=== PATIENT | female | born 1940 | race Caucasian/White ===

== ENCOUNTER 2019-02-05 22:11 | Observation (INO) ==
[2019-02-05] MEDS ORDERED: NORMAL SALINE 1,000 ML IV ONE (22:37)
--- NOTE | 2019-02-05 22:40 | ERNOTE ---
Abdominal HPI - General Time Seen by Provider: 02/05/19 22:22 Source: patient, family Exam Limitations: no limitations - Immun/Allergies/Home Medications Immunizatons: IMMUNIZATION HX Immunizations Up to Date Yes History of Influenza Vaccine Yes Hx Pneumococcal Vaccination Yes Allergies/Adverse Reactions: Allergies oxycodone [Oxycodone] Adverse Reaction (Intermediate, Verified 02/03/19 10:55) hallucinations hydrocodone Adverse Reaction (Mild, Verified 02/03/19 10:55) Headache lisinopril Adverse Reaction (Mild, Verified 02/03/19 10:55) cough Sulfa (Sulfonamide Antibiotics) Adverse Reaction (Mild, Verified 02/03/19 10:55) rash Home Medications: HOME MEDICATIONS Blood Sugar Diagnostic, Drum [Accu-Chek Compact] 1 ea MC BID 10/09/14 [Last Taken Unknown] Insul NPH Hu Rec/Ins Rg Hu Rec [Novolin 70/30] 30 units SC BID 10/09/14 [Last Taken Unknown] Nitroglycerin [Nitrostat] 0.4 mg SL Q5MIN PRN 10/09/14 [Last Taken Unknown] cholecalciferol (vitamin D3) 10,000 unit capsule 20,000 unit PO Q7D cap 12/20/17 [Last Taken Unknown] insulin syringe U-100 with needle 1 mL 30 gauge x 1/2" See Dose Instructions .ROUTE .MEDSUPPLY #10 ea 12/20/17 [Last Taken Unknown] lancets See Dose Instructions .ROUTE .MEDSUPPLY #50 ea 12/20/17 [Last Taken Unkn own] lancets See Dose Instructions .ROUTE .MEDSUPPLY #100 ea 01/07/18 [Last Taken Unknown] pen needle, diabetic 31 gauge x 5/16" See Dose Instructions .ROUTE .MEDSUPPLY #30 ea 01/07/18 [Last Taken Unknown] enalapril maleate 2.5 mg tablet 5 mg PO DAILY #60 tab 04/18/18 [Last Taken Unknown] blood sugar diagnostic strips See Dose Instructions .ROUTE .MEDSUPPLY #100 ea 06/14/18 [Last Taken Unknown] metformin 850 mg tablet 850 mg PO TID #240 tab 06/27/18 [Last Taken Unknown] hydrochlorothiazide 25 mg tablet 50 mg PO DAILY #60 tab 07/19/18 [Last Taken Unknown] cholestyramine-aspartame 4 gram oral powder for susp in a packet 4 g PO DAILY #60 ea 08/19/18 [Last Taken Unknown] aspirin 81 mg tablet,delayed release 81 mg PO DAILY 08/20/18 [Last Taken Unknown] glucosamine sulfate 500 mg tablet 500 mg PO BID 08/20/18 [Last Taken Unknown] vitamin B complex tablet 1 tab PO DAILY 08/20/18 [Last Taken Unknown] diflunisal 500 mg tablet 500 mg PO BID #60 tab 09/19/18 [Last Taken Unknown] gabapentin 600 mg tablet See Rx Instructions PO DAILY #90 tab 10/01/18 [Last Taken Unknown] metoprolol succinate ER 50 mg tablet,extended release 24 hr See Rx Instructions .ROUTE .COMPLEX #30 tablet 10/01/18 [Last Taken Unknown] venlafaxine 75 mg tablet 75 mg PO TID #90 tab 10/01/18 [Last Taken Unknown] clopidogrel 75 mg tablet See Rx Instructions .ROUTE .COMPLEX #30 tablet 11/27/18 [Last Taken Unknown] insulin glargine (U-100) 100 unit/mL (3 mL) subcutaneous pen 50 unit SUBCUT DAILY #15 ml 12/25/18 [Last Taken Unknown] isosorbide mononitrate ER 30 mg tablet,extended release 24 hr 30 mg PO QAM #30 tab 12/25/18 [Last Taken Unknown] dicyclomine 20 mg tablet 20 mg PO TID PRN #30 tab 02/03/19 [Last Taken Unknown] metronidazole 500 mg tablet 500 mg PO TID 10 Days #30 tab 02/05/19 [Last Taken Unknown] - History of Present Illness Narrative: Patient had diarrhea for approximately a week she is currently on Flagyl and Bentyl her diarrhea continues. She is also had issues with her left foot she had her left great toenail removed about a month ago and in the interim her other toes have seems to be discolored. Last couple of days her small toe is been erythematous and sore. Timing: getting worse Quality: moderate Associated Symptoms: Present: nausea Review of Systems - Review of Systems Constitutional: Present: recent illness, fatigue. Absent: chills ENT: Absent: nose congestion, nasal drainage Respiratory: Absent: shortness of breath, cough Cardiology: Absent: chest pain, palpitations Gastrointestinal/Abdominal: Present: See HPI, nausea, diarrhea, abdominal pain Genitourinary: Absent: dysuria Musculoskeletal: Present: back pain - fall yesterday Skin: Present: rash - feet, dryness Endocrine: Absent: excessive sweating Hematologic/Lymphatic: Present: easy bruising Medical History (Updated 02/06/19 @ 03:59 by Chuck Stokes DO) Arthritis Onset Date: Unknown Back pain Onset Date: Unknown Bilateral knee pain Onset Date: Unknown CAD (coronary artery disease) Onset Date: Unknown CHF (congestive heart failure) Onset Date: Unknown Shaji Bonnet syndrome Onset Date: Unknown DJD (degenerative joint disease) Onset Date: Unknown Depression Onset Date: Unknown Diabetes Onset Date: Unknown Diabetes mellitus, type II Onset Date: Unknown Frequent falls Onset Date: Unknown GERD (gastroesophageal reflux disease) Onset Date: Unknown Glaucoma Onset Date: Unknown HTN (hypertension) Onset Date: Unknown Hyperlipidemia Onset Date: Unknown Legally blind Lichen sclerosus Myalgia and myositis RLS (restless legs syndrome) Vertebral fracture Surgical History: Surgical History (Updated 12/21/17 @ 06:47 by Abhijit Pérez MA) H/O: hysterectomy Onset Date: ~1975 History of ankle surgery Onset Date: Unknown History of arthroscopy of right knee Onset Date: ~[address] Angel arthrosocopy History of eye surgery Onset Date: ~2013 OD to replace bleb per pt Hx of CABG Onset Date: ~2005 Hx of cholecystectomy Onset Date: ~1995 Family History: Family History (Updated 12/21/17 @ 06:43 by Abhijit Pérez MA) Father Diabetes Mother CVA (cerebral vascular accident) Sister 2 sisters with breast cancer Social History: (Last Reviewed 02/05/19 @ 22:32 by Chuck Stokes DO) Social History: Marital status: household members: spouse current occupational status: retired Highest education level completed: some college, no degree Service: No Tobacco: Smoking Status: Never smoker Alcohol: alcohol intake: never Substance Use: substance use type: does not use Dietary Habits: caffeine: No Physical Exam - Physical Exam General Appearance: Present: wd/wn, alert, mild distress, lethargic Head Exam: Present: normal inspection, no evidence of injury Eye Exam: Normal inspection: bilateral Respiratory: Present: no respiratory distress, normal breath sounds, no accessory muscle use, lungs clear Cardiovascular/Chest: Present: regular rate, rhythm, no murmur Gastrointestinal/Abdominal: Present: normal bowel sounds, tenderness - RUQ, LUQ, LLQ Extremity Exam: Present: other - Pedal edema bilaterally. Redness and swelling of toes on the left Neurological Exam: Present: alert, oriented, normal mood/affect, no motor/sensory deficits Skin Exam: Present: other - Skin is generally dry somewhat flaky. Left great toenail bed is dry third toe has black/ possible blood blister on the tip. Small toe is erythematous swollen tender. Progress - Results and Orders Patient's Lab Results:: I have reviewed the patient's lab results. Results and Orders: Laboratory Tests 02/05/19 02/05/19 22:45 22:45 WBC 11.2 H Hgb 11.6 L Hct 34.1 L Plt Count 249 Neutrophils % (Manual) 82 H Sodium 132 Potassium 3.5 Chloride 95 L BUN 34 H Creatinine 1.44 H Random Glucose 213 H Calcium 8.3 Total Bilirubin 0.3 AST 17 ALT 7 L Alkaline Phosphatase 67 Albumin 2.5 L Amylase 15 L Lipase 53 L - Vital Signs Patient's Vital Signs:: I have reviewed the patient's vital signs. Vital Signs: Vital Signs 02/05/19 22:16 Temperature 38.1 C H Pulse Rate 79 Respiratory Rate 18 Blood Pressure 127/82 O2 Sat by Pulse Oximetry 91 L - X-Ray X-Ray #1 X-Ray: abdomen Interpretation: Interp. by me X-ray Comments: No free air or significant air-fluid levels. No evidence of obstruction or mass. X-Ray #2 X-Ray: foot Interpretation: Interp. by me X-ray Comments: Left foot No evidence of fracture, dislocation or periosteal reaction. - CT/Ultrasound CT/Ultrasound Narrative: CT abdomen pelvis with IV and oral contrast. Focally hypodistended rectosigmoid colon with characteristics worrisome for severe colitis superimposed upon generalized colitis. No evidence for perforation or obstruction. Appendix nonvisualized however lack of pericecal inflammation makes appendicitis extremely unlikely - Progress/Reassessment Progress Note-Subjective: 02/06/19 04:[address] Martines he agrees with admission for colitis. Departure Clinical Impression: Colitis Cellulitis Qualifiers: Site of cellulitis: extremity Site of cellulitis of extremity: toe Laterality: left Qualified Code(s): L03.032 - Cellulitis of left toe - Departure Disposition: Still a patient Condition: Fair
[2019-02-05 22:51] LABS: Hematocrit 34.1 % (37.0-47.0); Hemoglobin 11.6 gm/dL (12.5-16.0); Mean Cell Volume 96.9 fl (78-100); Mean Platelet Volume 9.5 fl (8-12.5); Platelet Count 249 K/mm3 (150-450); Red Blood Count 3.52 M/mm3 (4.2-5.4); Red Cell Distribution Width 12.7 % (11.5-14.0); White Blood Count 11.2 K/mm3 (4.0-10.5)
[2019-02-05 22:57] LABS: Total Cells Counted 100
[2019-02-05 23:00] LABS: Eosinophil 1 % (0-3); Lymphocyte 10 % (20-51); Monocyte 7 % (0-9); Neutrophil 82 % (42-75); Neutrophil # 9.2 K/mm3 (1.3-6.0); Platelet Estimate Normal (NORMAL); RBC Morphology Normal (NORMAL)
[2019-02-05 23:05] LABS: Albumin * 2.5 gm/dl (3.4-5.0); Anion Gap 16.1 mmol/L (6.8-13.8); BUN/Creatinine Ratio 23.6 (9.0-21.6); Bilirubin, Total 0.3 mg/dL (0.0-1.1); Ca. Corrected For Albumin 9.2 mg/dL (8.4-10.2); Calcium * 8.3 mg/dL (7.9-10.9); Carbon Dioxide 24.4 mmol/L (24-32.6); Potassium 3.5 mmol/L (3.4-4.6); Total Protein 6.3 gm/dL (6.2-8.2)
[2019-02-06 00:04] LABS: Urine Bilirubin Negative (NEGATIVE); Urine Blood 50 /ul (NEGATIVE); Urine Ketone Negative (NEGATIVE); Urine Nitrite Negative (NEGATIVE); Urine Protein 30 mg/dL (NEGATIVE); Urine Urobilinogen Normal (NORMAL); Urine pH 5.5 pH (5.0-7.0)
[2019-02-06 00:11] LABS: Urine Appearance Clear (CLEAR); Urine Bacteria 1+; Urine Color Yellow; Urine RBC TRACE /hpf (0-5); Urine WBC TRACE /hpf (0-5)
[2019-02-06] MEDS ORDERED: DIATRIZOATE MEGLUMINE, SODIUM 30 ML BTL PO ONE (00:13)
[2019-02-06] MEDS ORDERED: ONDANSETRON HCL/PF 2 MG/ML VIAL IV ONE (01:34)
[2019-02-06] MEDS ORDERED: CIPROFLOXACIN IN 5 % DEXTROSE 400 MG/200 ML BAG IV SCH (04:15)
[2019-02-06] MEDS: metroNIDAZOLE/SODIUM CHLORIDE 500 MG/100 ML BAG IV SCH ×3 (05:53→20:31)
[2019-02-06] MEDS ORDERED: NITROGLYCERIN 0.4 MG/TAB BTL SL PRN (07:32)
--- NOTE | 2019-02-06 07:59 | HP ---
Chief Complaint - Chief Complaint Date of Service: 02/06/19 Time of Service: 07:36 Chief Complaint: diarrhea and abdominal pain Medical History (Updated 02/06/19 @ 03:59 by Chuck Stokes DO) Arthritis Onset Date: Unknown Back pain Onset Date: Unknown Bilateral knee pain Onset Date: Unknown CAD (coronary artery disease) Onset Date: Unknown CHF (congestive heart failure) Onset Date: Unknown Shaji Bonnet syndrome Onset Date: Unknown DJD (degenerative joint disease) Onset Date: Unknown Depression Onset Date: Unknown Diabetes Onset Date: Unknown Diabetes mellitus, type II Onset Date: Unknown Frequent falls Onset Date: Unknown GERD (gastroesophageal reflux disease) Onset Date: Unknown Glaucoma Onset Date: Unknown HTN (hypertension) Onset Date: Unknown Hyperlipidemia Onset Date: Unknown Legally blind Lichen sclerosus Myalgia and myositis RLS (restless legs syndrome) Vertebral fracture Surgical History: Surgical History (Updated 12/21/17 @ 06:47 by Abhijit Pérez MA) H/O: hysterectomy Onset Date: ~1975 History of ankle surgery Onset Date: Unknown History of arthroscopy of right knee Onset Date: ~[address] Angel arthrosocopy History of eye surgery Onset Date: ~2013 OD to replace bleb per pt Hx of CABG Onset Date: ~2005 Hx of cholecystectomy Onset Date: ~1995 Family History: Family History (Updated 12/21/17 @ 06:43 by Abhijit Pérez MA) Father Diabetes Mother CVA (cerebral vascular accident) Sister 2 sisters with breast cancer Social History: (Last Reviewed 02/06/19 @ 05:18 by Elicia Leos RN) Social History: Marital status: household members: spouse current occupational status: retired Highest education level completed: some college, no degree Service: No Tobacco: Smoking Status: Never smoker Alcohol: alcohol intake: never Substance Use: substance use type: does not use Dietary Habits: caffeine: No Review Of Systems (GEN) - Review of Systems Generalized/Overall Review: Absent: Chills, Fever EENTM: Present: No Symptoms Reported Respiratory: Present: No Symptoms Reported Cardiac: Present: No Symptoms Reported Abdominal: Present: Nausea, Vomiting, Abdominal Pain, Diarrhea. Absent: Hematemesis Genitourinary: Present: No Symptoms Reported Musculoskeletal: Present: No Symptoms Reported Neurological: Present: No Symptoms Reported Skin: Present: Change in Color, Change in hair/nails Endocrine: Present: No Symptoms Reported Immunizations: IMMUNIZATION HX Immunizations Up to Date Yes History of Influenza Vaccine Yes Hx Pneumococcal Vaccination Yes Allergies/Adverse Reactions: Allergies Allergy/AdvReac Type Severity Reaction Status Date / Time oxycodone [Oxycodone] AdvReac Intermediate hallucinati Verified 02/03/19 10:55 ons hydrocodone AdvReac Mild Headache Verified 02/03/19 10:55 lisinopril AdvReac Mild cough Verified 02/03/19 10:55 Sulfa (Sulfonamide AdvReac Mild rash Verified 02/03/19 10:55 Antibiotics) Home Medications: HOME MEDICATIONS Blood Sugar Diagnostic, Drum [Accu-Chek Compact] 1 ea MC BID 10/09/14 [Last Taken Unknown] Insul NPH Hu Rec/Ins Rg Hu Rec [Novolin 70/30] 30 units SC BID 10/09/14 [Last Taken Unknown] Nitroglycerin [Nitrostat] 0.4 mg SL Q5MIN PRN 10/09/14 [Last Taken Unknown] cholecalciferol (vitamin D3) 10,000 unit capsule 20,000 unit PO Q7D cap 12/20/17 [Last Taken Unknown] insulin syringe U-100 with needle 1 mL 30 gauge x 1/2" See Dose Instructions .ROUTE .MEDSUPPLY #10 ea 12/20/17 [Last Taken Unknown] lancets See Dose Instructions .ROUTE .MEDSUPPLY #50 ea 12/20/17 [Last Taken Unknown] lancets See Dose Instructions .ROUTE .MEDSUPPLY #100 ea 01/07/18 [Last Taken Unknown] pen needle, diabetic 31 gauge x 5/16" See Dose Instructions .ROUTE .MEDSUPPLY #30 ea 01/07/18 [Last Taken Unknown] enalapril maleate 2.5 mg tablet 5 mg PO DAILY #60 tab 04/18/18 [Last Taken Unknown] blood sugar diagnostic strips See Dose Instructions .ROUTE .MEDSUPPLY #100 ea 06/14/18 [Last Taken Unknown] metformin 850 mg tablet 850 mg PO TID #240 tab 06/27/18 [Last Taken Unknown] hydrochlorothiazide 25 mg tablet 50 mg PO DAILY #60 tab 07/19/18 [Last Taken Unknown] cholestyramine-aspartame 4 gram oral powder for susp in a packet 4 g PO DAILY #60 ea 08/19/18 [Last Taken Unknown] aspirin 81 mg tablet,delayed release 81 mg PO DAILY 08/20/18 [Last Taken Unknown] glucosamine sulfate 500 mg tablet 500 mg PO BID 08/20/18 [Last Taken Unknown] vitamin B complex tablet 1 tab PO DAILY 08/20/18 [Last Taken Unknown] diflunisal 500 mg tablet 500 mg PO BID #60 tab 09/19/18 [Last Taken Unknown] gabapentin 600 mg tablet See Rx Instructions PO DAILY #90 tab 10/01/18 [Last Taken Unknown] metoprolol succinate ER 50 mg tablet,extended release 24 hr See Rx Instructions .ROUTE .COMPLEX #30 tablet 10/01/18 [Last Taken Unknown] venlafaxine 75 mg tablet 75 mg PO TID #90 tab 10/01/18 [Last Taken Unknown] clopidogrel 75 mg tablet See Rx Instructions .ROUTE .COMPLEX #30 tablet 11/27/18 [Last Taken Unknown] insulin glargine (U-100) 100 unit/mL (3 mL) subcutaneous pen 50 unit SUBCUT DAILY #15 ml 12/25/18 [Last Taken Unknown] isosorbide mononitrate ER 30 mg tablet,extended release 24 hr 30 mg PO QAM #30 tab 12/25/18 [Last Taken Unknown] dicyclomine 20 mg tablet 20 mg PO TID PRN #30 tab 02/03/19 [Last Taken Unknown] metronidazole 500 mg tablet 500 mg PO TID 10 Days #30 tab 02/05/19 [Last Taken Unknown] Exam - Exam Vital Signs: Vital Signs - Last Taken Temp 36.6 C 02/06/19 06:00 Pulse 74 02/06/19 06:00 Resp 20 02/06/19 06:00 BP 149/46 02/06/19 06:00 Pulse Ox 95 02/06/19 06:00 Constitutional: Present: Alert, Oriented x3, Cooperative, Mild distress, Moderate distress, Elderly ENT Exam: Present: hearing grossly normal Neck: Present: supple Respiratory: Present: lungs clear, normal breath sounds, no respiratory distress, no accessory muscle use Cardiovascular/Chest: Present: regular rate, rhythm Peripheral Pulses: dorsalis-pedis (R): 1+, dorsalis-pedis (L): 1+ Abdomen: Present: tender - worse LLQ/RLQ and suprapubic, mildly tender PEPPER, other - hyperactive, distended. Absent: guarding, rigidity, rebound tenderness Extremity: Present: no calf tenderness, pedal edema - 1+, slow capillary refill - 5 sec., other - pt. has L foot appearance that is unchanged from office visit on Sunday. she does have some mild erythema in her toes, black eschar/scab on the tip of 3rd toe L foot. appearance unchanged. Foot not warm to touch nor TTP. Neurologic: Present: alert, oriented x 3, depressed affect Appearance: Present: appropriate appearance, appropriate insight, neat, no memory impairment Eye contact: Present: cooperative, other - pt. is blind so does not look directly at you. Thoughts: Present: normal thought pattern, no apparent hallucination Diagnostic Studies: Abnormal Lab Results 02/05/19 02/05/19 02/05/19 Range/Units 22:45 22:45 23:56 WBC 11.2 H (4.0-10.5) K/mm3 RBC 3.52 L (4.2-5.4) M/mm3 Hgb 11.6 L (12.5-16.0) gm/dL Hct 34.1 L (37.0-47.0) % MCH 33.0 H (27-31) pg Neutrophils % (Manual) 82 H (42-75) % Lymphocytes % (Manual) 10 L (20-51) % Neutrophils # (Manual) 9.2 H (1.3-6.0) K/mm3 Lymphocytes # (Manual) 1.1 L (1.5-3.5) k/mm3 Chloride 95 L (97-106) mmol/L Anion Gap 16.1 H (6.8-13.8) mmol/L BUN 34 H (3-23) mg/dL Creatinine 1.44 H (0.4-1.4) mg/dL Est GFR (Non-Af Amer) 37 L D (60-130) mL/min BUN/Creatinine Ratio 23.6 H (9.0-21.6) Random Glucose 213 H (70-110) mg/dL ALT 7 L (19-67) U/L Albumin 2.5 L (3.4-5.0) gm/dl Amylase 15 L (25-115) U/L Lipase 53 L (73-393) U/L Urine Protein 30 H (NEGATIVE) mg/dL Urine Blood 50 H (NEGATIVE) /ul Ur Leukocyte Esterase 75 H (NEGATIVE) /ul Urine WBC Trace H (0-5) /hpf Urine Bacteria 1+ H (NONE) Stl C.difficile Tox A&B (Negative) 02/06/19 Range/Units 04:00 WBC (4.0-10.5) K/mm3 RBC (4.2-5.4) M/mm3 Hgb (12.5-16.0) gm/dL Hct (37.0-47.0) % MCH (27-31) pg Neutrophils % (Manual) (42-75) % Lymphocytes % (Manual) (20-51) % Neutrophils # (Manual) (1.3-6.0) K/mm3 Lymphocytes # (Manual) (1.5-3.5) k/mm3 Chloride (97-106) mmol/L Anion Gap (6.8-13.8) mmol/L BUN (3-23) mg/dL Creatinine (0.4-1.4) mg/dL Est GFR (Non-Af Amer) (60-130) mL/min BUN/Creatinine Ratio (9.0-21.6) Random Glucose (70-110) mg/dL ALT (19-67) U/L Albumin (3.4-5.0) gm/dl Amylase (25-115) U/L Lipase (73-393) U/L Urine Protein (NEGATIVE) mg/dL Urine Blood (NEGATIVE) /ul Ur Leukocyte Esterase (NEGATIVE) /ul Urine WBC (0-5) /hpf Urine Bacteria (NONE) Stl C.difficile Tox A&B Positive H (Negative) Laboratory Results WBC 11.2 K/mm3 (4.0-10.5) H 02/05/19 22:45 RBC 3.52 M/mm3 (4.2-5.4) L 02/05/19 22:45 Hgb 11.6 gm/dL (12.5-16.0) L 02/05/19 22:45 Hct 34.1 % (37.0-47.0) L 02/05/19 22:45 MCV 96.9 fl (78-100) 02/05/19 22:45 MCH 33.0 pg (27-31) H 02/05/19 22:45 MCHC 34.0 g/dl (32-36) 02/05/19 22:45 RDW 12.7 % (11.5-14.0) 02/05/19 22:45 Plt Count 249 K/mm3 (150-450) 02/05/19 22:45 MPV 9.5 fl (8-12.5) 02/05/19 22:45 82 % (42-75) H 02/05/19 22:45 10 % (20-51) L 02/05/19 22:45 7 % (0-9) 02/05/19 22:45 1 % (0-3) 02/05/19 22:45 9.2 K/mm3 (1.3-6.0) H 02/05/19 22:45 1.1 k/mm3 (1.5-3.5) L 02/05/19 22:45 0.8 k/mm3 (0.0-1.0) 02/05/19 22:45 0.1 k/mm3 (0.0-0.7) 02/05/19 22:45 Normal (NORMAL) 02/05/19 22:45 RBC Morphology Normal (NORMAL) 02/05/19 22:45 Sodium 132 mmol/L (132-142) 02/05/19 22:45 134 mmol/L (130-142) 02/05/19 22:45 Potassium 3.5 mmol/L (3.4-4.6) 02/05/19 22:45 Chloride 95 mmol/L (97-106) L 02/05/19 22:45 Carbon Dioxide 24.4 mmol/L (24-32.6) 02/05/19 22:45 16.1 mmol/L (6.8-13.8) H 02/05/19 22:45 BUN 34 mg/dL (3-23) H 02/05/19 22:45 1.44 mg/dL (0.4-1.4) H 02/05/19 22:45 Est GFR (Non-Af Amer) 37 mL/min (60-130) L D 02/05/19 22:45 23.6 (9.0-21.6) H 02/05/19 22:45 213 mg/dL (70-110) H 02/05/19 22:45 Calcium 8.3 mg/dL (7.9-10.9) 02/05/19 22:45 Calcium Adj for Albumin 9.2 mg/dL (8.4-10.2) 02/05/19 22:45 0.3 mg/dL (0.0-1.1) 02/05/19 22:45 AST 17 U/L (0-48) 02/05/19 22:45 ALT 7 U/L (19-67) L 02/05/19 22:45 67 U/L (50-170) 02/05/19 22:45 6.3 gm/dL (6.2-8.2) 02/05/19 22:45 2.5 gm/dl (3.4-5.0) L 02/05/19 22:45 Amylase 15 U/L (25-115) L 02/05/19 22:45 53 U/L (73-393) L 02/05/19 22:45 Yellow 02/05/19 23:56 Clear (CLEAR) 02/05/19 23:56 5.5 pH (5.0-7.0) 02/05/19 23:56 Ur Specific [place] 1.020 SP.GR. (1.005-1.010) 02/05/19 23:56 30 mg/dL (NEGATIVE) H 02/05/19 23:56 Negative mg/dL (NEGATIVE) 02/05/19 23:56 Negative mg/dL (NEGATIVE) 02/05/19 23:56 50 /ul (NEGATIVE) H 02/05/19 23:56 Negative (NEGATIVE) 02/05/19 23:56 Negative mg/dl (NEGATIVE) 02/05/19 23:56 Prot Sulfosalicylic Acd 1+ mg/dL (0) 02/05/19 23:56 Normal EU/dl (NORMAL) 02/05/19 23:56 Ur Leukocyte Esterase 75 /ul (NEGATIVE) H 02/05/19 23:56 Trace /hpf (0-5) 02/05/19 23:56 Trace /hpf (0-5) H 02/05/19 23:56 Ur Epithelial Cells Trace /hpf (0-5) 02/05/19 23:56 1+ (NONE) H 02/05/19 23:56 Culture to follow 02/05/19 23:56 Stl C.difficile Tox A&B Positive (Negative) H 02/06/19 04:00 Assessment/Plan - Assessment/Plan (1) Clostridium difficile colitis Assessment: with significant abdominal pain but no fever and only slightly elevated WBC. Will start oral vancomycin and continue IV flagyl while she is here, but plan on discharging her tomorrow on oral vancomycin if her diarrhea is improving and WBC and abdominal pain have improved. Problem: Acute (2) Skin ulcer of third toe of left foot Assessment: stable, no changes other than to keep clean and covered. Problem: Chronic Qualifiers: (3) Abdominal pain Assessment: due to c. diff colitis. CT of abdomen did not show signs of diverticulitis. tx as for C. diff. Problem: Acute Qualifiers: Abdominal location: generalized Qualified Code(s): R10.84 - Generalized abdominal pain (4) Diarrhea Assessment: due to C. Diff. very disruptive to her as she is blind, her bathroom is difficult to get to and it is difficult for her to take care of her hygiene due to living alone and being blind. Hopefully sx will improve within her timeframe here in the hospital under observation. Problem: Acute Qualifiers: (5) PAD (peripheral artery disease) Assessment: stable, will continue blood thinners for now, but will watch for GI bleeding which she is at risk for with her C. diff colitis. stopping medications will potentially set her up for worsening of her foot issues and push her toward amputation, which she and I wish to avoid. Problem: Chronic (6) Diabetes Assessment: will hold her current meds and do SSI while here in the hospital. Problem: Acute Qualifiers: Diabetes mellitus type: type 2 Diabetes mellitus usp insulin use: with exterminator use Diabetes mellitus complication status: with circulatory complication Diabetes mellitus complication detail: with peripheral angiopathy without gangrene Qualified Code(s): E11.51 - Type 2 diabetes mellitus with diabetic peripheral angiopathy without gangrene; Z79.4 - half-way (current) use of insulin (7) Discharge planning issues Assessment: most significant issue is her C. Diff. which is very disruptive to her as she is blind, her bathroom is difficult to get to and it is difficult for her to take care of her hygiene due to living alone and being blind. Hopefully sx will improve within her timeframe here in the hospital under observation. She does not meet criteria for inpatient, but not sure if she will be well enough to RT home within the allotted time given by an observation status. will see how she does over the next 24hrs, with hopes of discharging home late tomorrow, but with cautions as she will be at very high risk for morbidity if not mortality, given her social/living status and blindness and various disease issues. Problem: Acute
[2019-02-06] MEDS: VANCOMYCIN HCL 50 MG/ML BTL PO SCH ×3 (08:29→18:57)
[2019-02-06] MEDS ORDERED: INSUL NPH HU REC/INS RG HU REC 100 UNITS/ML VIAL SC SCH (09:00)
[2019-02-06] MEDS: INSULIN GLARGINE,HUM.REC.ANLOG 100 UNITS/ML VIAL SC SCH (10:21)
[2019-02-06] MEDS: VENLAFAXINE HCL 75 MG TABLET PO SCH ×3 (10:26→16:45)
[2019-02-06] MEDS: ISOSORBIDE MONONITRATE 30 MG TAB.SR.24H PO SCH (10:27)
[2019-02-06] MEDS: METOPROLOL SUCCINATE 50 MG TABLET.SA PO SCH (10:28)
[2019-02-06] MEDS: CLOPIDOGREL BISULFATE 75 MG TABLET PO SCH (10:28)
[2019-02-06] MEDS: GABAPENTIN 600 MG TABLET PO SCH (10:28)
[2019-02-06] MEDS: VITAMIN B COMP W-C 1 TAB TABLET PO SCH (10:29)
[2019-02-06] MEDS: ENALAPRIL MALEATE 5 MG TABLET PO SCH (10:29)
[2019-02-06] MEDS: INSULIN REGULAR, HUMAN 100 UNITS/ML VIAL SC SCH ×3 (12:35→20:31)
[2019-02-06] MEDS ORDERED: ACETAMINOPHEN 325 MG TABLET PO PRN (15:33)
[2019-02-06] MEDS ORDERED: GABAPENTIN 600 MG TABLET PO SCH (21:00)
[2019-02-07] MEDS: VANCOMYCIN HCL 50 MG/ML BTL PO SCH ×3 (02:36→13:33)
[2019-02-07] MEDS: metroNIDAZOLE/SODIUM CHLORIDE 500 MG/100 ML BAG IV SCH ×2 (03:40→11:24)
[2019-02-07] MEDS: INSULIN REGULAR, HUMAN 100 UNITS/ML VIAL SC SCH ×3 (06:59→17:46)
--- NOTE | 2019-02-07 07:03 | PN ---
Subjective - Date and Time Seen Date: 02/07/19 Time: 06:48 Subjective Narrative: Pt. states she didn't sleep well last PM. lots of bad dreams. States her diarrhea and abdominal pain did reduce last night around midnight, still having loose stools though. No F/C. Still requiring O2 to keep sats in the low 90's - on 1LNC. Denies CP/SOB. Blood sugars have been in the 200's. Objective Objective Narrative: Asleep, but comfortable - including breathing, slight snore, sleeping on side. Alert when awakened with no distress. - Review of Systems Generalized/Overall Review: Reports: Weakness, Fatigue. Denies: Chills, Fever EENTM: Reports: No Symptoms Reported Respiratory: Denies: Cough, Shortness of Breath Cardiac: Denies: Chest Pain, Palpitations Abdominal: Reports: Abdominal Pain. Denies: Nausea, Vomiting, Diarrhea Genitourinary Symptoms: Reports: No Symptoms Reported Musculoskeletal Complaints: Reports: Joint Pain Neurological: Reports: No Symptoms Reported Skin: Reports: Lesions Endocrine: Reports: No Symptoms Reported - Vitals Vitals: Last Vital Signs Temp 36.6 C 02/07/19 02:51 Pulse 55 L 02/07/19 02:51 Resp 16 02/07/19 02:51 BP 112/84 02/07/19 02:51 Pulse Ox 97 02/07/19 02:51 - Exam Constitutional: Present: Alert, Oriented x3, Cooperative, Mild distress, Elderly ENT Exam: Present: hearing grossly normal Neck: Present: supple Respiratory: Present: lungs clear, no respiratory distress, no accessory muscle use Cardiovascular/Chest: Present: regular rate, rhythm, no murmur Abdomen: Present: soft, nondistended, no rebound tenderness, no hepatospenomegaly, tender - in lower abdomen, but must less tender than yesterday. Extremity: Present: other - mild erythema of the left foot, with ulcer and eschar/scab unchanged. No dolor or calor. Neurologic: Present: normal mood/affect, oriented x 3 Appearance: Present: appropriate appearance, appropriate insight, neat, no memory impairment Eye contact: Present: cooperative, normal speech Thoughts: Present: normal thought pattern, no apparent hallucination Assessment/Plan - Problems/Diagnosis (1) Clostridium difficile colitis Problem: Acute Narrative: Sx are improving. will continue IV flagyl and oral vanc to broader coverage. consider doing PO Vanc and flagyl at time of discharge for coverage of C. Diff as well as to cover any potential aspiration pneumonia. (2) Skin ulcer of third toe of left foot Problem: Chronic Qualifiers: Non-pressure ulcer stage: with fat layer exposed Narrative: stable, no further tx needed at this time other than to keep clean and protected. will see podiatry outpt, but don't feel more abx are warranted at this time, especially in light of her c. diff colitis, abx need to be held to a minimum. (3) Abdominal pain Problem: Acute Qualifiers: Abdominal location: generalized Qualified Code(s): R10.84 - Generalized abdominal pain (4) Diarrhea Problem: Acute Qualifiers: (5) PAD (peripheral artery disease) Problem: Chronic Narrative: Stable. No bloody stools reported. will continue ASA, plavix and the IMDUR to help with circulation. 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 expect this to improve as the infection improves, resolves. (7) Respiratory failure Problem: Acute Qualifiers: Chronicity: acute Respiratory failure complication: hypoxia Qualified Code(s): J96.01 - Acute respiratory failure with hypoxia Narrative: unsure of the etiology. She did vomit prior to admission, but no findings on Xray or exam to indicate aspiration pneumonia. will follow for now. consider d/c on flagyl as she has been receiving this IV. need to wean her off O2 prior to discharge as she doesn't wear O2 typically at home. (8) Discharge planning issues Problem: Acute Narrative: Pt. is improved. Case management indicates she does have good home support, though its not 24/7, there is someone there multiple times a day for her. D/w p t. that she will most likely go home this pm, even if sx are still present. Explained to her the regulations regarding Obs vs inpatient. She understands and is agreeable to comply. We will see how the day goes in regards to weaning her off her O2 and the ability to transfer and not have copious stools throughout the day. She will definitely need to be off O2 prior to discharge.
[2019-02-07] MEDS: VITAMIN B COMP W-C 1 TAB TABLET PO SCH (08:34)
[2019-02-07] MEDS: CLOPIDOGREL BISULFATE 75 MG TABLET PO SCH (08:35)
[2019-02-07] MEDS: ISOSORBIDE MONONITRATE 30 MG TAB.SR.24H PO SCH (08:35)
[2019-02-07] MEDS: VENLAFAXINE HCL 75 MG TABLET PO SCH ×3 (08:35→17:46)
[2019-02-07] MEDS: METOPROLOL SUCCINATE 50 MG TABLET.SA PO SCH (08:35)
[2019-02-07] MEDS: ENALAPRIL MALEATE 5 MG TABLET PO SCH (08:35)
[2019-02-07] MEDS: GABAPENTIN 600 MG TABLET PO SCH (08:35)
[2019-02-07] MEDS: INSULIN GLARGINE,HUM.REC.ANLOG 100 UNITS/ML VIAL SC SCH (08:39)
--- NOTE | 2019-02-07 15:40 | DS ---
(1) Clostridium difficile colitis Diagnosis(s): improving. will discharge home on both flagyl and vanco. Problem: Acute (2) Skin ulcer of third toe of left foot Diagnosis(s): stable during stay. continue to protect, keep clean, f/u with podiatry next week. Problem: Chronic Qualifiers: Non-pressure ulcer stage: with fat layer exposed (3) Abdominal pain Problem: Acute Qualifiers: Abdominal location: generalized Qualified Code(s): R10.84 - Generalized abdominal pain (4) Diarrhea Problem: Acute Qualifiers: (5) PAD (peripheral artery disease) Diagnosis(s): stable. it does have some bearing on the wound on her toe, but toe is not worsening. continue to keep toe clean and dry and protected. continue ASA and plavix and IMDUR to help with circulation. Problem: Chronic (6) Diabetes Diagnosis(s): Sugars improving during her stay. Will discharge her back home on her usual regimen. continuing good diet. exercise is difficult due to blindness, but she does stay active. 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 weaned off O2 and maintaining sats at baseline levels. Problem: Resolved Qualifiers: Chronicity: acute Respiratory failure complication: hypoxia Qualified Code(s): J96.01 - Acute respiratory failure with hypoxia (8) Discharge planning issues Problem: Acute Date of Discharge:: 02/07/19 Description of Stay: see above dx's for details. Procedures Performed: none Results and Findings: Pending Mircobiology Results 02/06/19 04:00 Stool Stool Culture - Preliminary No Pathogens Isolated 02/06/19 00:00 Urine,Voided Urine Culture - Preliminary Gram Negative Bacilli Gram Negative Bacilli#2 Lab Pending Results 02/05/19 22:45: WBC 11.2 H, RBC 3.52 L, Hgb 11.6 L, Hct 34.1 L, MCV 96.9, MCH 33.0 H, MCHC 34.0, RDW 12.7, Plt Count 249, MPV 9.5, Neutrophils % (Manual) 82 H, Lymphocytes % (Manual) 10 L, Monocytes % (Manual) 7, Eosinophils % (Manual) 1, Neutrophils # (Manual) 9.2 H, Lymphocytes # (Manual) 1.1 L, Monocytes # (Manual) 0.8, Eosinophils # (Manual) 0.1, Platelet Estimate Normal, RBC Morphology Normal 02/05/19 22:45: Sodium 132, Plasma Sodium 134, Potassium 3.5, Chloride 95 L, Carbon Dioxide 24.4, Anion Gap 16.1 H, BUN 34 H, Creatinine 1.44 H, Est GFR (Non-Af Amer) 37 L D, BUN/Creatinine Ratio 23.6 H, Random Glucose 213 H, Calcium 8.3, Calcium Adj for Albumin 9.2, Total Bilirubin 0.3, AST 17, ALT 7 L, Alkaline Phosphatase 67, Total Protein 6.3, Albumin 2.5 L, Amylase 15 L, Lipase 53 L 02/05/19 23:56: Urine Color Yellow, Urine Appearance Clear, Urine pH 5.5, Ur Specific Gary 1.020, Urine Protein 30 H, Urine Glucose (UA) Negative, Urine Ketones Negative, Urine Blood 50 H, Urine Nitrate Negative, Urine Bilirubin Negative, Prot Sulfosalicylic Acd 1+, Urine Urobilinogen Normal, Ur Leukocyte Esterase 75 H, Urine RBC Trace, Urine WBC Trace H, Ur Epithelial Cells Trace, Urine Bacteria 1+ H, Urine Culture Comments Culture to follow 02/06/19 04:00: Stl C.difficile Tox A&B Positive H Discharge Location: Home Disposition: Home self-care Condition: Fair Discharge Activity: Activity as tolerated Discharge Diet: Consistent carbs Referrals: Luis Fernando Briceño MD [Primary Care Provider] - 02/17/19 Additional Patient Instructions (free text): -Please make TCM appointment unless alf discharge, or if following up with outside provider. Thank you! [place] @ [facility] [phone] or [place] at [facility] [address]. Prescriptions (Any new or edited meds): Vancomycin HCl [Vancomycin] 125 mg PO Q6H 10 Days #100 ml Complete Home Medications List: Complete Home Medication List: metformin 850 mg tablet 850 mg PO TID #240 tab 06/27/18 cholestyramine-aspartame 4 gram oral powder for susp in a packet 4 g PO DAILY #60 ea 08/19/18 diflunisal 500 mg tablet 500 mg PO BID #60 tab 09/19/18 venlafaxine 75 mg tablet 75 mg PO TID #90 tab 10/01/18 isosorbide mononitrate ER 30 mg tablet,extended release 24 hr 30 mg PO QAM #30 tab 12/25/18 dicyclomine 20 mg tablet 20 mg PO TID PRN #30 tab 02/03/19 metronidazole 500 mg tablet 500 mg PO TID 10 Days #30 tab 02/05/19 Aspirin [Aspirin Chewable] 81 mg PO DAILY 02/06/19 Clopidogrel Bisulfate [Plavix] 75 mg PO DAILY 02/06/19 Dorzolamide HCl/Timolol Maleat [Dorzolamide-Timolol Eye Drops] 1 drp EACHEYE BID 02/06/19 Enalapril Maleate [Vasotec] 2.5 mg PO QAM 02/06/19 Gabapentin [Neurontin] 600 mg PO TID 02/06/19 Glucosamine HCl 1,000 mg PO BID 02/06/19 Hydrochlorothiazide [Hydrodiuril] 25 mg PO DAILY 02/06/19 Insulin Aspart Prot/Insuln Asp [Novolog Mix 70-30 Flexpen Syrn] See Protocol SQ BID 02/06/19 Insulin Glargine,Hum.rec.anlog [Basaglar Kwikpen U-100] 50 unit SQ DAILY 02/06/19 Latanoprost/Pf [Latanoprost 0.005% Eye Drop] 1 drp EACHEYE HS 02/06/19 Metoprolol Succinate 25 mg PO DAILY 02/06/19 Vancomycin HCl [Vancomycin] 125 mg PO Q6H 10 Days #100 ml 02/07/19
[2019-02-07 16:54] VITALS: BP 108/62
== END 2019-02-07 18:00 | disposition home or self-care (01) ==
LOC: ER 22:11 → INTOOBSV 02-06 03:54 → MS 02-06 03:54
PROVIDERS: ADMIT Family Medicine; ATTEND Family Medicine
DX: R19.7 Diarrhea, unspecified; E11.51 Type 2 diabetes mellitus with diabetic peripheral angiopathy without gangrene; J96.01 Acute respiratory failure with hypoxia; I73.9 Peripheral vascular disease, unspecified; A04.72 Enterocolitis due to Clostridium difficile, not specified as recurrent; L97.529 Non-pressure chronic ulcer of other part of left foot with unspecified severity; Z79.4 Long term (current) use of insulin; R10.84 Generalized abdominal pain
CPT/HCPCS: 36415; 73630; 74019; 74020; 74177; 80053; 81001; 82150; 83690; 85025; 87045; 87046; 87077; 87086; 87186; 87493; 96365; 96366; 96372; 96375; 99285; G0378; J2405; Q9963; Q9967

== ENCOUNTER 2019-06-20 14:36 | Inpatient (IN) ==
[2019-06-20] MEDS ORDERED: ONDANSETRON HCL/PF 2 MG/ML VIAL IV ONE (15:10)
[2019-06-20] MEDS ORDERED: NORMAL SALINE 1,000 ML IV ONE ×2 (15:12→20:04)
--- NOTE | 2019-06-20 15:20 | ERNOTE ---
Abdominal HPI - General Chief Complaint: Abdominal Pain Time Seen by Provider: 06/20/19 14:59 Source: patient Exam Limitations: no limitations - Immun/Allergies/Home Medications Immunizatons: IMMUNIZATION HX Immunizations Up to Date Yes History of Influenza Vaccine Yes Hx Pneumococcal Vaccination Yes Allergies/Adverse Reactions: Allergies oxycodone [Oxycodone] Adverse Reaction (Intermediate, Verified 06/20/19 14:48) hallucinations hydrocodone Adverse Reaction (Mild, Verified 06/20/19 14:48) Headache lisinopril Adverse Reaction (Mild, Verified 06/20/19 14:48) cough Sulfa (Sulfonamide Antibiotics) Adverse Reaction (Mild, Verified 06/20/19 14:48) rash Home Medications: HOME MEDICATIONS acetaminophen 325 mg tablet 650 mg PO Q6H PRN #90 tab 06/10/19 [Last Taken Unknown] alcohol swabs 1 pad TP AC #400 ea 06/10/19 [Last Taken Unknown] atorvastatin 80 mg tablet 80 mg PO HS #90 tab 06/10/19 [Last Taken Unknown] cholestyramine-aspartame 4 gram oral powder for susp in a packet 4 g PO DAILY #60 ea 06/10/19 [Last Taken Unknown] dicyclomine 10 mg capsule 10 mg PO QID #120 cap 06/10/19 [Last Taken Unknown] lancets 30 gauge See Rx Instructions .ROUTE .MEDSUPPLY #200 ea 06/10/19 [Last Taken Unknown] melatonin 10 mg tablet 10 mg PO DAILY #90 tab 06/10/19 [Last Taken Unknown] metformin 850 mg tablet 850 mg PO TID #270 tab 06/10/19 [Last Taken Unknown] metoprolol tartrate 25 mg tablet 12.5 mg PO BID #90 tab 06/10/19 [Last Taken Unknown] pen needle, diabetic, safety 31 gauge x 5/16" See Rx Instructions .ROUTE .MEDSUPPLY #100 ea 06/10/19 [Last Taken Unknown] venlafaxine 75 mg tablet See Rx Instructions .ROUTE .COMPLEX #270 tab 06/10/19 [Last Taken Unknown] ascorbic acid (vitamin C) 500 mg tablet 500 mg PO DAILY #30 tab 06/11/19 [Last Taken Unknown] aspirin 81 mg tablet,delayed release 81 mg PO DAILY #30 tab 06/11/19 [Last Taken Unknown] blood sugar diagnostic See Rx Instructions .ROUTE .MEDSUPPLY #100 ea 06/11/19 [Last Taken Unknown] camphor-methyl salicyl-menthol 1 patch TP DAILY PRN #40 ea 06/11/19 [Last Taken Unknown] dorzolamide-timolol (PF) 2 %-0.5 % eye drops in a dropperette 1 drp OP BID #60 ea 06/11/19 [Last Taken Unknown] ferrous sulfate 325 mg (65 mg iron) tablet 325 mg PO DAILY #30 tab 06/11/19 [Last Taken Unknown] furosemide 40 mg tablet 40 mg PO DAILY #30 tab 06/11/19 [Last Taken Unknown] insulin glargine 100 unit/mL (3 mL) subcutaneous pen 38 unit SUBCUT DAILY #15 ml 06/11/19 [Last Taken Unknown] lancing device with lancets See Rx Instructions .ROUTE .MEDSUPPLY #1 ea 06/11/19 [Last Taken Unknown] lidocaine 5 % topical patch 1 patch TP DAILY PRN 06/11/19 [Last Taken Unknown] lisinopril 10 mg tablet 10 mg PO DAILY #90 tab 06/11/19 [Last Taken Unknown] menthol 4 % topical gel 1 applic TP DAILY PRN #118 ml 06/11/19 [Last Taken Unknown] multivitamin 1 tab PO DAILY #30 tab 06/11/19 [Last Taken Unknown] mupirocin 2 % topical ointment 1 applic TP DAILY #15 g 06/11/19 [Last Taken Unknown] insulin aspart U-100 100 unit/mL (3 mL) subcutaneous pen 2 unit SUBCUT AC PRN #15 ml 06/13/19 [Last Taken Unknown] warfarin 4 mg tablet 4 mg PO DAILY #7 tab 06/17/19 [Last Taken Unknown] latanoprost (PF) 0.005 % eye drops 1 drp OP HS #7.5 ml 06/18/19 [Last Taken Unknown] loperamide 2 mg tablet 2 mg PO Q6H PRN #30 tab 06/18/19 [Last Taken Unknown] ondansetron HCl 4 mg tablet 4 mg PO Q8H PRN #30 tab 06/18/19 [Last Taken Unknown] - History of Present Illness Narrative: Patient is here for vomiting and diarrhea. She had recurrent C. diff was treated here in 01/30 [place] and was hospitalized. While in the hospital she had a stroke with residual right hand weakness, b/l leg weakness, difficulty swallow and still drinks thickened liquids (nectar thick). She lives in assisted living and states that she started with diarrhea again two weeks ago, had vomiting on and off for a week/since yesterday? (story changes), vomits in triage, mild abdominal peter Timing: intermittent Quality: mild Activities at Onset: none Associated Symptoms: Present: nausea, vomiting. Absent: chest pain, fever/chills Prior Abdominal Problems: Present: similar symptoms Prior Treatment: Absent: recently seen, currently on antibiotics Review of Systems - Review of Systems Constitutional: Present: malaise. Absent: recent illness, fever, chills ENT: Absent: sore throat Respiratory: Absent: shortness of breath, cough Cardiology: Absent: chest pain Gastrointestinal/Abdominal: Present: See HPI, nausea, vomiting, diarrhea Genitourinary: Absent: frequency, dysuria Skin: Absent: rash Neurological: Present: weakness - generalized Medical History (Last Reviewed 06/20/19 @ 15:37 by Doris Bragg MD) Stroke before 2018 Arthritis Onset Date: Unknown Back pain Onset Date: Unknown Bilateral knee pain Onset Date: Unknown CAD (coronary artery disease) Onset Date: Unknown CHF (congestive heart failure) Onset Date: Unknown Shaji Bonnet syndrome Onset Date: Unknown DJD (degenerative joint disease) Onset Date: Unknown Depression Onset Date: Unknown Diabetes Onset Date: Unknown Diabetes mellitus, type II Onset Date: Unknown Frequent falls Onset Date: Unknown GERD (gastroesophageal reflux disease) Onset Date: Unknown Glaucoma Onset Date: Unknown HTN (hypertension) Onset Date: Unknown Hyperlipidemia Onset Date: Unknown Legally blind Lichen sclerosus Myalgia and myositis RLS (restless legs syndrome) Vertebral fracture Pulmonary hypertension moderate Surgical History: Surgical History (Last Reviewed 06/20/19 @ 15:37 by Doris Bargg MD) H/O: hysterectomy Onset Date: ~1975 History of ankle surgery Onset Date: Unknown History of arthroscopy of right knee Onset Date: ~[address] Angel arthrosocopy History of eye surgery Onset Date: ~2013 OD to replace bleb per pt Hx of CABG Onset Date: ~2005 Hx of cholecystectomy Onset Date: ~1995 Family History: Family History (Last Reviewed 06/20/19 @ 14:46 by Niharika Luna RN) Father Diabetes Mother CVA (cerebral vascular accident) Sister 2 sisters with breast cancer Social History: (Last Reviewed 06/20/19 @ 14:47 by Niharika Luna RN) Social History: Marital status: household members: spouse current occupational status: retired Highest education level completed: some college, no degree Service: No Tobacco: Smoking Status: Never smoker Alcohol: alcohol intake: never Substance Use: substance use type: does not use Dietary Habits: caffeine: No Physical Exam - Physical Exam General Appearance: Present: wd/wn, alert, no apparent distress Head Exam: Present: normal inspection Ears, Nose, Throat: Present: normal pharynx Respiratory: Present: no respiratory distress, normal breath sounds, no accessory muscle use, lungs clear Cardiovascular/Chest: Present: regular rate, rhythm, no murmur Gastrointestinal/Abdominal: Present: normal bowel sounds, nondistended, soft, tenderness - mildly throughout Extremity Exam: Present: no edema Neurological Exam: Present: alert, oriented, normal mood/affect Skin Exam: Present: normal color, warm/dry Progress - Results and Orders Patient's Lab Results:: I have reviewed the patient's lab results. - reviewed labs drawn out patient earlier today - Vital Signs Patient's Vital Signs:: I have reviewed the patient's vital signs. Vital Signs: Vital Signs 06/20/19 14:36 Temperature 36.4 C Pulse Rate 85 Respiratory Rate 16 Blood Pressure 135/55 O2 Sat by Pulse Oximetry 96 - X-Ray X-Ray #1 X-Ray: abdomen - non specific bowel gas pattern, see report Interpretation: Reviewed by me - Progress/Reassessment Chief Complaint: Abdominal Pain Progress Note-Subjective: 06/20/19 18:03 discussed positive Cdiff with patient, patient is able to transfer with assist but not able to walk more than two steps, very unsteady, won't be able to go back to assisted living like that 06/20/19 18:04 discussed with edmundo Vasquez to admit for observation for Cdiff, weakness, okay to start vanc po 06/20/19 18:21 updated daughter who called Departure Clinical Impression: Clostridium difficile colitis, Generalized weakness - Departure Disposition: Still a patient Condition: Stable
[2019-06-20 16:06] LABS: Urine Bilirubin Negative (NEGATIVE); Urine Blood Negative /ul (NEGATIVE); Urine Ketone Negative (NEGATIVE); Urine Nitrite Negative (NEGATIVE); Urine Protein Negative (NEGATIVE); Urine Specific Gravity 1.025 SP.GR. (1.005-1.010); Urine Urobilinogen Normal (NORMAL); Urine pH 5.5 pH (5.0-7.0)
[2019-06-20 16:18] LABS: Urine Color Dark Yellow
[2019-06-20 16:19] LABS: Urine Appearance Slightly Cloudy (CLEAR); Urine Bacteria TRACE; Urine RBC None Seen /hpf (0-5)
[2019-06-20 17:11] LABS: Hematocrit 35.3 % (37.0-47.0); Hemoglobin 11.5 gm/dL (12.5-16.0); Mean Cell Volume 92.4 fl (78-100); Mean Corpuscular Hemoglobin 30.1 pg (27-31); Mean Corpuscular Hgb Conc 32.6 g/dl (32-36); Mean Platelet Volume 9.5 fl (8-12.5); Platelet Count 344 K/mm3 (150-450); Red Blood Count 3.82 M/mm3 (4.2-5.4); White Blood Count 10.1 K/mm3 (4.0-10.5)
[2019-06-20 17:14] LABS: Total Cells Counted 100
[2019-06-20 17:26] LABS: Albumin * 2.4 gm/dl (3.4-5.0); BUN/Creatinine Ratio 20.4 (9.0-21.6); Bilirubin, Total 0.2 mg/dL (0.0-1.1); Ca. Corrected For Albumin 8.9 mg/dL (8.4-10.2); Calcium * 7.9 mg/dL (7.9-10.9); Carbon Dioxide 23.7 mmol/L (24-32.6); Potassium 3.7 mmol/L (3.4-4.6); Total Protein 6.2 gm/dL (6.2-8.2)
[2019-06-20 17:27] LABS: Band 9 % (0-2.0); Eosinophil 1 % (0-3); Lymphocyte 14 % (20-51); Monocyte 8 % (0-9); Neutrophil 68 % (42-75); Neutrophil # 6.9 K/mm3 (1.3-6.0); Platelet Estimate Normal (NORMAL); RBC Morphology Normal (NORMAL)
[2019-06-20] MEDS ORDERED: [UNRECOGNIZED DRUG - OTHER] TP PRN (19:51)
[2019-06-20] MEDS ORDERED: METHYL SALICYLATE TP PRN (19:51)
[2019-06-20] MEDS ORDERED: CAMPHOR TP PRN (19:51)
[2019-06-20] MEDS ORDERED: LOPERAMIDE 2 MG PO PRN (19:51)
[2019-06-20] MEDS ORDERED: MENTHOL TP PRN ×2 (19:51)
[2019-06-20] MEDS ORDERED: LIDOCAINE 1 PATCH ADH..PATCH TP PRN (19:51)
--- NOTE | 2019-06-20 20:10 | HP ---
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 On arrival to the ER patients vital signs are stable. Labs significant for hypergylcemia, acute kidney injury and dehydration. No leukocytosis. Remaining w orkup is largely unremarkable. Patient is hemodynamically stable. Started on fluids, received zofran for nausea and started on Vancomycin 125 mg PO Q6H x 10 days. Upon evaluation patient is resting in her bed, c/o nausea and weakness. Otherwise no other concerns. Discussed management with patient and voiced understanding and is agreeable with plan. Medical History (Last Reviewed 06/20/19 @ 15:37 by Doris Bragg MD) Stroke before 2018 Arthritis Onset Date: Unknown Back pain Onset Date: Unknown Bilateral knee pain Onset Date: Unknown CAD (coronary artery disease) Onset Date: Unknown CHF (congestive heart failure) Onset Date: Unknown Shaji Bonnet syndrome Onset Date: Unknown DJD (degenerative joint disease) Onset Date: Unknown Depression Onset Date: Unknown Diabetes Onset Date: Unknown Diabetes mellitus, type II Onset Date: Unknown Frequent falls Onset Date: Unknown GERD (gastroesophageal reflux disease) Onset Date: Unknown Glaucoma Onset Date: Unknown HTN (hypertension) Onset Date: Unknown Hyperlipidemia Onset Date: Unknown Legally blind Lichen sclerosus Myalgia and myositis RLS (restless legs syndrome) Vertebral fracture Pulmonary hypertension moderate Surgical History: Surgical History (Last Reviewed 06/20/19 @ 15:37 by Doris Bragg MD) H/O: hysterectomy Onset Date: ~1975 History of ankle surgery Onset Date: Unknown History of arthroscopy of right knee Onset Date: ~[address] Angel arthrosocopy History of eye surgery Onset Date: ~2013 OD to replace bleb per pt Hx of CABG Onset Date: ~2005 Hx of cholecystectomy Onset Date: ~1995 Family History: Family History (Last Reviewed 06/20/19 @ 14:46 by Niharika Luna RN) Father Diabetes Mother CVA (cerebral vascular accident) Sister 2 sisters with breast cancer Social History: (Last Reviewed 06/20/19 @ 14:47 by Niharika Luna RN) Social History: Marital status: household members: spouse current occupational status: retired Highest education level completed: some college, no degree Service: No Tobacco: Smoking Status: Never smoker Alcohol: alcohol intake: never Substance Use: substance use type: does not use Dietary Habits: caffeine: No Review Of Systems (GEN) - Review of Systems Generalized/Overall Review: Present: Weakness, Fatigue. Absent: Chills, Fever, Malaise EENTM: Present: No Symptoms Reported Respiratory: Absent: Cough, Shortness of Breath, Orthopnea, Wheezing Cardiac: Absent: Chest Pain, Edema Abdominal: Present: Nausea, Vomiting, Abdominal Pain, Diarrhea Genitourinary: Present: No Symptoms Reported Musculoskeletal: Absent: Joint Pain, Back Pain, Joint Swelling Neurological: Present: Pre-existing Deficit - right upper weakness and dysphgia from CVA in 03/2019. Skin: Present: Dryness, Change in hair/nails - bandages over second and third toe due to nail removal. Managed by Dr. Huynh Endocrine: Present: No Symptoms Reported Immunizations: IMMUNIZATION HX Immunizations Up to Date Yes History of Influenza Vaccine Yes Hx Pneumococcal Vaccination Yes Allergies/Adverse Reactions: Allergies Allergy/AdvReac Type Severity Reaction Status Date / Time oxycodone [Oxycodone] AdvReac Intermediate hallucinati Verified 06/20/19 14:48 ons hydrocodone AdvReac Mild Headache Verified 06/20/19 14:48 lisinopril AdvReac Mild cough Verified 06/20/19 14:48 Sulfa (Sulfonamide AdvReac Mild rash Verified 06/20/19 14:48 Antibiotics) Home Medications: HOME MEDICATIONS acetaminophen 325 mg tablet 650 mg PO Q6H PRN #90 tab 06/10/19 [Last Taken Unknown] alcohol swabs 1 pad TP AC #400 ea 06/10/19 [Last Taken Unknown] atorvastatin 80 mg tablet 80 mg PO HS #90 tab 06/10/19 [Last Taken Unknown] cholestyramine-aspartame 4 gram oral powder for susp in a packet 4 g PO DAILY #60 ea 06/10/19 [Last Taken Unknown] dicyclomine 10 mg capsule 10 mg PO QID #120 cap 06/10/19 [Last Taken Unknown] lancets 30 gauge See Rx Instructions .ROUTE .MEDSUPPLY #200 ea 06/10/19 [Last Taken Unknown] melatonin 10 mg tablet 10 mg PO DAILY #90 tab 06/10/19 [Last Taken Unknown] metformin 850 mg tablet 850 mg PO TID #270 tab 06/10/19 [Last Taken Unknown] metoprolol tartrate 25 mg tablet 12.5 mg PO BID #90 tab 06/10/19 [Last Taken Unknown] pen needle, diabetic, safety 31 gauge x 5/16" See Rx Instructions .ROUTE .MEDSUPPLY #100 ea 06/10/19 [Last Taken Unknown] venlafaxine 75 mg tablet See Rx Instructions .ROUTE .COMPLEX #270 tab 06/10/19 [Last Taken Unknown] ascorbic acid (vitamin C) 500 mg tablet 500 mg PO DAILY #30 tab 06/11/19 [Last Taken Unknown] aspirin 81 mg tablet,delayed release 81 mg PO DAILY #30 tab 06/11/19 [Last Taken Unknown] blood sugar diagnostic See Rx Instructions .ROUTE .MEDSUPPLY #100 ea 06/11/19 [Last Taken Unknown] camphor-methyl salicyl-menthol 1 patch TP DAILY PRN #40 ea 06/11/19 [Last Taken Unknown] dorzolamide-timolol (PF) 2 %-0.5 % eye drops in a dropperette 1 drp OP BID #60 ea 06/11/19 [Last Taken Unknown] ferrous sulfate 325 mg (65 mg iron) tablet 325 mg PO DAILY #30 tab 06/11/19 [Last Taken Unknown] furosemide 40 mg tablet 40 mg PO DAILY #30 tab 06/11/19 [Last Taken Unknown] insulin glargine 100 unit/mL (3 mL) subcutaneous pen 38 unit SUBCUT DAILY #15 ml 06/11/19 [Last Taken Unknown] lancing device with lancets See Rx Instructions .ROUTE .MEDSUPPLY #1 ea 06/11/19 [Last Taken Unknown] lidocaine 5 % topical patch 1 patch TP DAILY PRN 06/11/19 [Last Taken Unknown] lisinopril 10 mg tablet 10 mg PO DAILY #90 tab 06/11/19 [Last Taken Unknown] menthol 4 % topical gel 1 applic TP DAILY PRN #118 ml 06/11/19 [Last Taken Unknown] multivitamin 1 tab PO DAILY #30 tab 06/11/19 [Last Taken Unknown] mupirocin 2 % topical ointment 1 applic TP DAILY #15 g 06/11/19 [Last Taken Unknown] insulin aspart U-100 100 unit/mL (3 mL) subcutaneous pen 2 unit SUBCUT AC PRN #15 ml 06/13/19 [Last Taken Unknown] warfarin 4 mg tablet 4 mg PO DAILY #7 tab 06/17/19 [Last Taken Unknown] latanoprost (PF) 0.005 % eye drops 1 drp OP HS #7.5 ml 06/18/19 [Last Taken Unknown] loperamide 2 mg tablet 2 mg PO Q6H PRN #30 tab 06/18/19 [Last Taken Unknown] ondansetron HCl 4 mg tablet 4 mg PO Q8H PRN #30 tab 06/18/19 [Last Taken Unknown] Exam - Exam Vital Signs: Vital Signs - Last Taken Temp 36.1 C 06/20/19 18:59 Pulse 74 06/20/19 18:59 Resp 16 06/20/19 18:59 BP 121/49 06/20/19 18:59 Pulse Ox 94 06/20/19 18:59 Constitutional: Present: Alert, Oriented x3, Cooperative, Well developed ENT Exam: Present: hearing grossly normal Eye Exam: bilateral eye: normal inspection, EOMI Neck: Present: non-tender, full range of motion, supple Breasts: Present: Exam deferred Respiratory: Present: chest non-tender, lungs clear, normal breath sounds, no respiratory distress, no accessory muscle use, No rales, No wheezing Cardiovascular/Chest: Present: normal peripheral pulses, regular rate, rhythm, no chest tenderness, no edema, no gallop, no JVD, no murmur Peripheral Pulses: dorsalis-pedis (R): 2+, dorsalis-pedis (L): 2+ Abdomen: Present: Normal bowel sounds, soft, nontender, nondistended, no rebound tenderness. Absent: guarding Extremity: Present: normal range of motion, non-tender, normal inspection, no pedal edema, no calf tenderness, slow capillary refill Skin Exam: Present: normal color, warm/dry Neurologic: Present: alert, oriented x 3 Appearance: Present: appropriate appearance, appropriate insight Eye contact: Present: cooperative, good eye contact Thoughts: Present: normal thought pattern Diagnostic Studies: Abnormal Lab Results 02/11/3006/20/19 06/20/19 Range/Units 15:52 16:00 17:05 RBC 3.82 L (4.2-5.4) M/mm3 Hgb 11.5 L (12.5-16.0) gm/dL Hct 35.3 L (37.0-47.0) % Band Neuts % (Manual) 9 H (0-2.0) % Lymphocytes % (Manual) 14 L (20-51) % Neutrophils # (Manual) 6.9 H (1.3-6.0) K/mm3 Lymphocytes # (Manual) 1.4 L (1.5-3.5) k/mm3 Carbon Dioxide (24-32.6) mmol/L Anion Gap (6.8-13.8) mmol/L BUN (3-23) mg/dL Creatinine (0.4-1.4) mg/dL Est GFR (Non-Af Amer) (60-130) mL/min Random Glucose (70-110) mg/dL Albumin (3.4-5.0) gm/dl Ur Leukocyte Esterase 75 H (NEGATIVE) /ul Urine WBC 5-10 H (0-5) /hpf Ur Epithelial Cells 5-10 H (0-5) /hpf Stl C.difficile Tox A&B Positive H (Negative) 06/20/19 Range/Units 17:05 RBC (4.2-5.4) M/mm3 Hgb (12.5-16.0) gm/dL Hct (37.0-47.0) % Band Neuts % (Manual) (0-2.0) % Lymphocytes % (Manual) (20-51) % Neutrophils # (Manual) (1.3-6.0) K/mm3 Lymphocytes # (Manual) (1.5-3.5) k/mm3 Carbon Dioxide 23.7 L (24-32.6) mmol/L Anion Gap 14.0 H (6.8-13.8) mmol/L BUN 43 H (3-23) mg/dL Creatinine 2.11 H (0.4-1.4) mg/dL Est GFR (Non-Af Amer) 24 L (60-130) mL/min Random Glucose 271 H D (70-110) mg/dL Albumin 2.4 L (3.4-5.0) gm/dl Ur Leukocyte Esterase (NEGATIVE) /ul Urine WBC (0-5) /hpf Ur Epithelial Cells (0-5) /hpf Stl C.difficile Tox A&B (Negative) Laboratory Results WBC 10.1 K/mm3 (4.0-10.5) 06/20/19 17:05 RBC 3.82 M/mm3 (4.2-5.4) L 06/20/19 17:05 Hgb 11.5 gm/dL (12.5-16.0) L 06/20/19 17:05 Hct 35.3 % (37.0-47.0) L 06/20/19 17:05 MCV 92.4 fl (78-100) 06/20/19 17:05 MCH 30.1 pg (27-31) 06/20/19 17:05 MCHC 32.6 g/dl (32-36) 06/20/19 17:05 RDW 14.0 % (11.5-14.0) 06/20/19 17:05 Plt Count 344 K/mm3 (150-450) 06/20/19 17:05 MPV 9.5 fl (8-12.5) 06/20/19 17:05 Neutrophils % (Manual) 68 % (42-75) 06/20/19 17:05 Band Neuts % (Manual) 9 % (0-2.0) H 06/20/19 17:05 Lymphocytes % (Manual) 14 % (20-51) L 06/20/19 17:05 Monocytes % (Manual) 8 % (0-9) 06/20/19 17:05 Eosinophils % (Manual) 1 % (0-3) 06/20/19 17:05 Neutrophils # (Manual) 6.9 K/mm3 (1.3-6.0) H 06/20/19 17:05 Lymphocytes # (Manual) 1.4 k/mm3 (1.5-3.5) L 06/20/19 17:05 Monocytes # (Manual) 0.8 k/mm3 (0.0-1.0) 06/20/19 17:05 Eosinophils # (Manual) 0.1 k/mm3 (0.0-0.7) 06/20/19 17:05 Platelet Estimate Normal (NORMAL) 06/20/19 17:05 RBC Morphology Normal (NORMAL) 06/20/19 17:05 Sodium 133 mmol/L (132-142) 06/20/19 17:05 Plasma Sodium 136 mmol/L (130-142) 06/20/19 17:05 Potassium 3.7 mmol/L (3.4-4.6) 06/20/19 17:05 Chloride 99 mmol/L (97-106) 06/20/19 17:05 Carbon Dioxide 23.7 mmol/L (24-32.6) L 06/20/19 17:05 Anion Gap 14.0 mmol/L (6.8-13.8) H 06/20/19 17:05 BUN 43 mg/dL (3-23) H 06/20/19 17:05 Creatinine 2.11 mg/dL (0.4-1.4) H 06/20/19 17:05 Est GFR (Non-Af Amer) 24 mL/min (60-130) L 06/20/19 17:05 BUN/Creatinine Ratio 20.4 (9.0-21.6) 06/20/19 17:05 Random Glucose 271 mg/dL (70-110) H D 06/20/19 17:05 Lactic Acid, Venous 1.8 mmol/L (0.4-2.0) 06/20/19 17:05 Calcium 7.9 mg/dL (7.9-10.9) 06/20/19 17:05 Calcium Adj for Albumin 8.9 mg/dL (8.4-10.2) 06/20/19 17:05 Total Bilirubin 0.2 mg/dL (0.0-1.1) 06/20/19 17:05 AST 12 U/L (0-48) 06/20/19 17:05 ALT 28 U/L (19-67) 06/20/19 17:05 Alkaline Phosphatase 134 U/L (50-170) 06/20/19 17:05 Total Protein 6.2 gm/dL (6.2-8.2) 06/20/19 17:05 Albumin 2.4 gm/dl (3.4-5.0) L 06/20/19 17:05 Urine Color Dark yellow 06/20/19 15:52 Urine Appearance Slightly cloudy (CLEAR) 06/20/19 15:52 Urine pH 5.5 pH (5.0-7.0) 02/07/20 15:52 Ur Specific [place] 1.025 SP.GR. (1.005-1.010) 06/20/19 15:52 Urine Protein Negative mg/dL (NEGATIVE) 06/20/19 15:52 Urine Glucose (UA) Negative mg/dL (NEGATIVE) 06/20/19 15:52 Urine Ketones Negative mg/dL (NEGATIVE) 06/20/19 15:52 Urine Blood Negative /ul (NEGATIVE) 06/20/19 15:52 Urine Nitrate Negative (NEGATIVE) 06/20/19 15:52 Urine Bilirubin Negative mg/dl (NEGATIVE) 06/20/19 15:52 Urine Urobilinogen Normal EU/dl (NORMAL) 06/20/19 15:52 Ur Leukocyte Esterase 75 /ul (NEGATIVE) H 06/20/19 15:52 Urine RBC None seen /hpf (0-5) 06/20/19 15:52 Urine WBC 5-10 /hpf (0-5) H 06/20/19 15:52 Ur Epithelial Cells 5-10 /hpf (0-5) H 06/20/19 15:52 Urine Bacteria Trace (NONE) 06/20/19 15:52 Urine Culture Comments Culture to follow 06/20/19 15:52 Stl C.difficile Tox A&B Positive (Negative) H 06/20/19 16:00 Assessment/Plan - Narrative Narrative: Assessment/Plan 78 year old Female admitted for C.Diff Colitis, Weakness and Dehydration. C.Diff Colitis - Vancomycin 125 mg PO Q6H X 10 Days - Continue to monitor symptoms Poor Oral Intake and Dehydration - Hydrate with NS - Will be gentle with hydration in order not to exacerbate CHF - Will repeat CMP - Zofran IV 4 mg Q4H PRN Acute Renal Failure - Basleine Cr. 1.4, currently >2.0 - Will hydrate and repeat CMP in AM Weakness - PT evaluation in AM - Appreciate recommendations Chronic Conditions - Continue home medications FEN: mIVFs with NS, Consistent Carbs with thickened diet due to dysphagia DVT ppx: Coumadin 4mg PO Daily (INR therapeutic) CODE STATUS: DNR/DNI Disposition: - Admit to observation - Follow up on PT recommendations - Anticipate discharge to [facility] within 24 hours with PT and Vancomycin - Assessment/Plan (1) Clostridium difficile colitis Problem: Acute (2) Diarrhea Problem: Acute Qualifiers: Diarrhea type: infectious Qualified Code(s): A09 - Infectious gastroenteritis and colitis, unspecified (3) Weakness Problem: Acute (4) Acute renal failure Problem: Acute Qualifiers: Acute renal failure type: unspecified Qualified Code(s): N17.9 - Acute kidney failure, unspecified (5) PAD (peripheral artery disease) Problem: Chronic (6) Skin ulcer of third toe of left foot Problem: Chronic Qualifiers: Non-pressure ulcer stage: with fat layer exposed (7) CHF (congestive heart failure) Problem: Chronic Qualifiers: Heart failure type: unspecified Heart failure chronicity: unspecified Qualified Code(s): I50.9 - Heart failure, unspecified (8) Diabetes Problem: Chronic Qualifiers: Diabetes mellitus type: type 2 Diabetes mellitus fpc insulin use: with fpc use Diabetes mellitus complication status: with circulatory complication Diabetes mellitus complication detail: with peripheral angiopathy without gangrene Qualified Code(s): E11.51 - Type 2 diabetes mellitus with diabetic peripheral angiopathy without gangrene; Z79.4 - buttermaker continuous churn (current) use of insulin
[2019-06-20] MEDS ORDERED: NORMAL SALINE 1,000 ML IV PRN (20:22)
[2019-06-20] MEDS ORDERED: ROSUVASTATIN CALCIUM 10 MG TABLET ONE (20:46)
[2019-06-20] MEDS ORDERED: TIMOLOL MALEATE/DORZOLAM HCL 100 DROP BTL OP SCH (21:00)
[2019-06-20] MEDS ORDERED: LATANOPROST 25 DROP BTL OP SCH (21:00)
[2019-06-20] MEDS ORDERED: INSULIN ASPART 100 UNITS/ML VIAL SC SCH (21:00)
[2019-06-20] MEDS: VANCOMYCIN HCL 50 MG/ML BTL PO SCH (21:17)
[2019-06-20] MEDS: DICYCLOMINE HCL 10 MG CAPSULE PO SCH (21:18)
[2019-06-20] MEDS: METOPROLOL TARTRATE 25 MG TABLET PO SCH (21:18)
[2019-06-20] MEDS: TIMOLOL MALEATE/DORZOLAM HCL 100 DROP BTL OP SCH (21:18)
[2019-06-20] MEDS: ROSUVASTATIN CALCIUM 20 MG TABLET PO SCH (21:18)
[2019-06-20] MEDS: LATANOPROST 25 DROP BTL OP SCH (21:19)
[2019-06-20] MEDS: INSULIN LISPRO 100 UNITS/ML VIAL SC SCH (21:26)
[2019-06-21] MEDS: MELATONIN 3,000 MCG TABLET PO SCH ×2 (00:33→20:47)
[2019-06-21] MEDS: VANCOMYCIN HCL 50 MG/ML BTL PO SCH ×4 (00:37→20:45)
[2019-06-21] MEDS: ONDANSETRON HCL/PF 2 MG/ML VIAL IV PRN ×5 (00:53→18:53)
[2019-06-21 05:33] LABS: Hematocrit 36.3 % (37.0-47.0); Hemoglobin 11.8 gm/dL (12.5-16.0); Mean Cell Volume 92.8 fl (78-100); Mean Corpuscular Hemoglobin 30.2 pg (27-31); Mean Corpuscular Hgb Conc 32.5 g/dl (32-36); Platelet Count 384 K/mm3 (150-450); Red Blood Count 3.91 M/mm3 (4.2-5.4); Red Cell Distribution Width 14.1 % (11.5-14.0); White Blood Count 12.2 K/mm3 (4.0-10.5)
[2019-06-21 05:36] LABS: Total Cells Counted 100
[2019-06-21 05:48] LABS: Albumin * 2.3 gm/dl (3.4-5.0); Anion Gap 11.9 mmol/L (6.8-13.8); BUN/Creatinine Ratio 24.2 (9.0-21.6); Bilirubin, Total 0.3 mg/dL (0.0-1.1); Carbon Dioxide 24.4 mmol/L (24-32.6); Potassium 3.3 mmol/L (3.4-4.6); Total Protein 6.3 gm/dL (6.2-8.2)
[2019-06-21 06:03] LABS: Band 12 % (0-2.0); Immature Granulocyte 1 (0-1); Lymphocyte 6 % (20-51); Monocyte 2 % (0-9); Neutrophil 79 % (42-75); Neutrophil # 9.6 K/mm3 (1.3-6.0); Platelet Estimate Normal (NORMAL); Toxic Granulation 2+
[2019-06-21] MEDS: INSULIN LISPRO 100 UNITS/ML VIAL SC SCH ×4 (06:52→20:49)
[2019-06-21] MEDS ORDERED: INSULIN LISPRO 100 UNITS/ML VIAL SC PRN (07:00)
[2019-06-21] MEDS: METOPROLOL TARTRATE 25 MG TABLET PO SCH ×2 (08:42→20:47)
[2019-06-21] MEDS: FERROUS SULFATE 325 MG TABLET PO SCH (08:42)
[2019-06-21] MEDS: ASPIRIN 81 MG TABLET.DR PO SCH (08:42)
[2019-06-21] MEDS: FUROSEMIDE 40 MG TABLET PO SCH (08:43)
[2019-06-21] MEDS: DICYCLOMINE HCL 10 MG CAPSULE PO SCH ×4 (08:43→20:48)
[2019-06-21] MEDS: ASCORBIC ACID 500 MG TABLET PO SCH (08:43)
[2019-06-21] MEDS: MULTIVITAMINS 1 CAP CAPSULE PO SCH (08:43)
[2019-06-21] MEDS: TIMOLOL MALEATE/DORZOLAM HCL 100 DROP BTL OP SCH ×2 (08:44→20:50)
[2019-06-21] MEDS: INSULIN GLARGINE,HUM.REC.ANLOG 100 UNITS/ML VIAL SC SCH (08:52)
[2019-06-21] MEDS ORDERED: LISINOPRIL 10 MG TABLET PO SCH (09:00)
[2019-06-21 09:55] LABS: Prothrombin Time (Patient) 25.2 Seconds (9.1-10.7)
[2019-06-21 09:56] LABS: INR 2.64 INR (0.92-1.08)
[2019-06-21] MEDS: NORMAL SALINE 1,000 ML IV PRN (10:00)
[2019-06-21] MEDS: POTASSIUM CHLORIDE IN WATER 100 ML IV SCH ×4 (10:26→14:56)
[2019-06-21] MEDS: metroNIDAZOLE/SODIUM CHLORIDE 500 MG/100 ML BAG IV SCH ×2 (11:07→17:58)
[2019-06-21] MEDS: LISINOPRIL 20 MG TABLET PO SCH (11:15)
[2019-06-21] MEDS ORDERED: ACETAMINOPHEN 500 MG TABLET PO PRN (11:38)
[2019-06-21] MEDS: VENLAFAXINE HCL 75 MG TABLET PO SCH ×2 (12:11→16:19)
[2019-06-21] MEDS: KETOROLAC TROMETHAMINE 15 MG/ML VIAL IV PRN (12:42)
--- NOTE | 2019-06-21 15:39 | PN ---
Subjective - Date and Time Seen Date: 06/21/19 Time: 10:00 Subjective Narrative: c/o abdominal pain and many bowel movements overnight. +nausea. Objective - Review of Systems Generalized/Overall Review: Reports: Weakness. Denies: Chills, Fever EENTM: Reports: No Symptoms Reported Respiratory: Denies: Shortness of Breath Cardiac: Denies: Chest Pain Abdominal: Reports: Nausea, Abdominal Pain, Diarrhea. Denies: Vomiting Genitourinary Symptoms: Reports: No Symptoms Reported Musculoskeletal Complaints: Reports: No Symptoms Reported Neurological: Reports: Weakness Skin: Reports: Dryness Endocrine: Reports: No Symptoms Reported - Vitals Vitals: Last Vital Signs Temp 36.2 C 06/21/19 11:24 Pulse 65 06/21/19 12:00 Resp 18 06/21/19 11:24 BP 171/64 H 06/21/19 11:24 Pulse Ox 95 06/21/19 11:24 - Abnormal Lab Findings Abnormal Lab Findings: Abnormal Lab Results 06/20/19 06/20/19 06/20/19 Range/Units 15:52 16:00 17:05 WBC (4.0-10.5) K/mm3 RBC 3.82 L (4.2-5.4) M/mm3 Hgb 11.5 L (12.5-16.0) gm/dL Hct 35.3 L (37.0-47.0) % RDW (11.5-14.0) % Neutrophils % (Manual) (42-75) % Band Neuts % (Manual) 9 H (0-2.0) % Lymphocytes % (Manual) 14 L (20-51) % Neutrophils # (Manual) 6.9 H (1.3-6.0) K/mm3 Lymphocytes # (Manual) 1.4 L (1.5-3.5) k/mm3 PT (9.1-10.7) Seconds INR (Anticoag Therapy) (0.92-1.08) INR Potassium (3.4-4.6) mmol/L Carbon Dioxide (24-32.6) mmol/L Anion Gap (6.8-13.8) mmol/L BUN (3-23) mg/dL Creatinine (0.4-1.4) mg/dL Est GFR (Non-Af Amer) (60-130) mL/min BUN/Creatinine Ratio (9.0-21.6) Random Glucose (70-110) mg/dL Albumin (3.4-5.0) gm/dl Ur Leukocyte Esterase 75 H (NEGATIVE) /ul Urine WBC 5-10 H (0-5) /hpf Ur Epithelial Cells 5-10 H (0-5) /hpf Stl C.difficile Tox A&B Positive H (Negative) 06/20/19 06/21/19 06/21/19 Range/Units 17:05 05:00 05:00 WBC 12.2 H D (4.0-10.5) K/mm3 RBC 3.91 L (4.2-5.4) M/mm3 Hgb 11.8 L (12.5-16.0) gm/dL Hct 36.3 L (37.0-47.0) % RDW 14.1 H (11.5-14.0) % Neutrophils % (Manual) 79 H (42-75) % Band Neuts % (Manual) 12 H (0-2.0) % Lymphocytes % (Manual) 6 L (20-51) % Neutrophils # (Manual) 9.6 H (1.3-6.0) K/mm3 Lymphocytes # (Manual) 0.7 L (1.5-3.5) k/mm3 PT (9.1-10.7) Seconds INR (Anticoag Therapy) (0.92-1.08) INR Potassium 3.3 L (3.4-4.6) mmol/L Carbon Dioxide 23.7 L (24-32.6) mmol/L Anion Gap 14.0 H (6.8-13.8) mmol/L BUN 43 H 40 H (3-23) mg/dL Creatinine 2.11 H 1.65 H D (0.4-1.4) mg/dL Est GFR (Non-Af Amer) 24 L 32 L D (60-130) mL/min BUN/Creatinine Ratio 24.2 H (9.0-21.6) Random Glucose 271 H D 288 H (70-110) mg/dL Albumin 2.4 L 2.3 L (3.4-5.0) gm/dl Ur Leukocyte Esterase (NEGATIVE) /ul Urine WBC (0-5) /hpf Ur Epithelial Cells (0-5) /hpf Stl C.difficile Tox A&B (Negative) 06/21/19 Range/Units 09:42 WBC (4.0-10.5) K/mm3 RBC (4.2-5.4) M/mm3 Hgb (12.5-16.0) gm/dL Hct (37.0-47.0) % RDW (11.5-14.0) % Neutrophils % (Manual) (42-75) % Band Neuts % (Manual) (0-2.0) % Lymphocytes % (Manual) (20-51) % Neutrophils # (Manual) (1.3-6.0) K/mm3 Lymphocytes # (Manual) (1.5-3.5) k/mm3 PT 25.2 H (9.1-10.7) Seconds INR (Anticoag Therapy) 2.64 H (0.92-1.08) INR Potassium (3.4-4.6) mmol/L Carbon Dioxide (24-32.6) mmol/L Anion Gap (6.8-13.8) mmol/L BUN (3-23) mg/dL Creatinine (0.4-1.4) mg/dL Est GFR (Non-Af Amer) (60-130) mL/min BUN/Creatinine Ratio (9.0-21.6) Random Glucose (70-110) mg/dL Albumin (3.4-5.0) gm/dl Ur Leukocyte Esterase (NEGATIVE) /ul Urine WBC (0-5) /hpf Ur Epithelial Cells (0-5) /hpf Stl C.difficile Tox A&B (Negative) - Exam Constitutional: Present: Alert, Oriented x3, Cooperative, Mild distress ENT Exam: Present: hearing grossly normal Neck: Present: full range of motion, supple Respiratory: Present: chest non-tender, lungs clear, normal breath sounds Cardiovascular/Chest: Present: normal peripheral pulses, regular rate, rhythm, no chest tenderness, no edema, no JVD Abdomen: Present: Normal bowel sounds, soft Extremity: Present: normal inspection, no pedal edema, other - weakness Skin Exam: Present: normal color, warm/dry Neurologic: Present: alert, oriented x 3, motor weakness Appearance: Present: appropriate appearance Eye contact: Present: cooperative, good eye contact Thoughts: Present: normal thought pattern Assessment/Plan Plan Narrative: Assessment/Plan 78 year old Female admitted for C.Diff Colitis, Weakness and Dehydration. 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 - Continue to monitor - Tordal and Tylenol for abdominal pain Poor Oral Intake and Dehydration - Hydrate with NS - Will be gentle with hydration in order not to exacerbate CHF - Will repeat CMP - Zofran IV 4 mg Q4H PRN Acute Renal Failure - Improving - repeat CMP in AM Weakness - Cont PT - recommendations PT outpatient Chronic Conditions - Continue home medications FEN: mIVFs with NS, Consistent Carbs with thickened diet due to dysphagia DVT ppx: Coumadin 4mg PO Daily (INR therapeutic) CODE STATUS: DNR/DNI Disposition: - Anticipate discharge to [facility] within 48 hours hours with PT and Vancomycin and Falgyl, followed by rafiximin - Refer for stool transplant at [facility] - Problems/Diagnosis (1) Clostridium difficile colitis Problem: Acute (2) Diarrhea Problem: Acute Qualifiers: Diarrhea type: infectious Qualified Code(s): A09 - Infectious gastroenteritis and colitis, unspecified (3) Weakness Problem: Acute (4) Acute renal failure Problem: Acute Qualifiers: Acute renal failure type: unspecified Qualified Code(s): N17.9 - Acute kidney failure, unspecified (5) PAD (peripheral artery disease) Problem: Chronic (6) Skin ulcer of third toe of left foot Problem: Chronic Qualifiers: Non-pressure ulcer stage: with fat layer exposed (7) CHF (congestive heart failure) Problem: Chronic Qualifiers: Heart failure type: unspecified Heart failure chronicity: unspecified Qualified Code(s): I50.9 - Heart failure, unspecified (8) Diabetes Problem: Chronic Qualifiers: Diabetes mellitus type: type 2 Diabetes mellitus joint terminal attack controller insulin use: with alf use Diabetes mellitus complication status: with circulatory complication Diabetes mellitus complication detail: with peripheral angiopathy without gangrene Qualified Code(s): E11.51 - Type 2 diabetes mellitus with diabetic peripheral angiopathy without gangrene; Z79.4 - halfway (current) use of insulin
[2019-06-21] MEDS ORDERED: WARFARIN SODIUM 1 MG TABLET ONE (16:22)
[2019-06-21] MEDS: WARFARIN SODIUM 4 MG TABLET PO SCH (16:26)
[2019-06-21] MEDS ORDERED: LABETALOL HCL 5 MG/ML VIAL IV ONE (19:12)
[2019-06-21] MEDS: PROCHLORPERAZINE EDISYLATE 5 MG/ML VIAL IV PRN (19:54)
[2019-06-21] MEDS: ROSUVASTATIN CALCIUM 20 MG TABLET PO SCH (20:49)
[2019-06-21] MEDS: LATANOPROST 25 DROP BTL OP SCH (20:50)
[2019-06-22] MEDS: ONDANSETRON HCL/PF 2 MG/ML VIAL IV PRN ×3 (00:44→11:33)
[2019-06-22] MEDS: KETOROLAC TROMETHAMINE 15 MG/ML VIAL IV PRN (00:44)
[2019-06-22] MEDS: VANCOMYCIN HCL 50 MG/ML BTL PO SCH ×5 (00:45→23:35)
[2019-06-22] MEDS: NORMAL SALINE 1,000 ML IV PRN ×2 (00:46→14:19)
[2019-06-22] MEDS: metroNIDAZOLE/SODIUM CHLORIDE 500 MG/100 ML BAG IV SCH ×3 (03:01→19:13)
[2019-06-22 05:37] LABS: Hematocrit 39.3 % (37.0-47.0); Hemoglobin 12.7 gm/dL (12.5-16.0); Mean Cell Volume 92.3 fl (78-100); Mean Corpuscular Hemoglobin 29.8 pg (27-31); Mean Corpuscular Hgb Conc 32.3 g/dl (32-36); Mean Platelet Volume 10.4 fl (8-12.5); Platelet Count 362 K/mm3 (150-450); Red Blood Count 4.26 M/mm3 (4.2-5.4); Red Cell Distribution Width 14.2 % (11.5-14.0); White Blood Count 13.8 K/mm3 (4.0-10.5)
[2019-06-22 05:39] LABS: Prothrombin Time (Patient) 26.2 Seconds (9.1-10.7)
[2019-06-22 05:46] LABS: Albumin * 2.1 gm/dl (3.4-5.0); Anion Gap 12.6 mmol/L (6.8-13.8); BUN/Creatinine Ratio 26.8 (9.0-21.6); Bilirubin, Total 0.2 mg/dL (0.0-1.1); Ca. Corrected For Albumin 9.2 mg/dL (8.4-10.2); Potassium 3.6 mmol/L (3.4-4.6); Total Protein 5.6 gm/dL (6.2-8.2)
[2019-06-22 05:48] LABS: Total Cells Counted 100
[2019-06-22 05:53] LABS: INR 2.75 INR (0.92-1.08)
[2019-06-22 06:52] LABS: Atypical (Reactive) Lymph 2 % (0-2); Band 38 % (0-2.0); Immature Granulocyte 5 (0-1); Lymphocyte 8 % (20-51); Monocyte 11 % (0-9); Neutrophil 36 % (42-75)
[2019-06-22 06:53] LABS: Dohle Bodies 3+; Toxic Granulation 2+
[2019-06-22] MEDS: INSULIN LISPRO 100 UNITS/ML VIAL SC SCH ×4 (07:07→21:12)
[2019-06-22] MEDS: DICYCLOMINE HCL 10 MG CAPSULE PO SCH ×4 (08:08→21:00)
[2019-06-22] MEDS: ASPIRIN 81 MG TABLET.DR PO SCH (08:08)
[2019-06-22] MEDS: TIMOLOL MALEATE/DORZOLAM HCL 100 DROP BTL OP SCH ×2 (08:08→21:01)
[2019-06-22] MEDS: INSULIN GLARGINE,HUM.REC.ANLOG 100 UNITS/ML VIAL SC SCH (08:09)
[2019-06-22] MEDS: FERROUS SULFATE 325 MG TABLET PO SCH (08:09)
[2019-06-22] MEDS: VENLAFAXINE HCL 75 MG TABLET PO SCH ×3 (08:09→16:34)
[2019-06-22] MEDS: FUROSEMIDE 40 MG TABLET PO SCH (08:09)
[2019-06-22] MEDS: LISINOPRIL 20 MG TABLET PO SCH (08:10)
[2019-06-22] MEDS: ASCORBIC ACID 500 MG TABLET PO SCH (08:10)
[2019-06-22] MEDS: MULTIVITAMINS 1 CAP CAPSULE PO SCH (08:10)
[2019-06-22] MEDS: METOPROLOL TARTRATE 25 MG TABLET PO SCH ×2 (08:10→21:01)
[2019-06-22] MEDS: PROCHLORPERAZINE EDISYLATE 5 MG/ML VIAL IV PRN (10:34)
[2019-06-22] MEDS: ONDANSETRON HCL/PF 2 MG/ML VIAL IV SCH ×2 (12:57→19:14)
[2019-06-22] MEDS: KETOROLAC TROMETHAMINE 15 MG/ML VIAL IV SCH ×2 (12:57→19:15)
[2019-06-22] MEDS: ACETAMINOPHEN 500 MG TABLET PO SCH ×2 (15:16→23:25)
[2019-06-22] MEDS: WARFARIN SODIUM 4 MG TABLET PO SCH (16:34)
[2019-06-22] MEDS: ROSUVASTATIN CALCIUM 20 MG TABLET PO SCH (21:01)
[2019-06-22] MEDS: LATANOPROST 25 DROP BTL OP SCH (21:02)
[2019-06-22] MEDS: MELATONIN 3,000 MCG TABLET PO SCH (21:02)
[2019-06-23] MEDS ORDERED: ALPRAZolam 0.5 MG TABLET PO PRN (00:49)
[2019-06-23] MEDS: PANTOPRAZOLE SODIUM 40 MG TABLET.EC PO SCH ×2 (01:04→07:05)
[2019-06-23] MEDS: metroNIDAZOLE/SODIUM CHLORIDE 500 MG/100 ML BAG IV SCH (01:58)
[2019-06-23] MEDS: KETOROLAC TROMETHAMINE 15 MG/ML VIAL IV SCH (03:30)
[2019-06-23] MEDS: ONDANSETRON HCL/PF 2 MG/ML VIAL IV SCH (03:30)
[2019-06-23 04:18] LABS: Hematocrit 44.3 % (37.0-47.0); Hemoglobin 14.2 gm/dL (12.5-16.0); Mean Cell Volume 94.3 fl (78-100); Mean Corpuscular Hemoglobin 30.2 pg (27-31); Mean Corpuscular Hgb Conc 32.1 g/dl (32-36); Mean Platelet Volume 10.4 fl (8-12.5); Platelet Count 411 K/mm3 (150-450); Red Cell Distribution Width 14.2 % (11.5-14.0); White Blood Count 16.8 K/mm3 (4.0-10.5)
[2019-06-23 04:27] LABS: Prothrombin Time (Patient) 53.9 Seconds (9.1-10.7)
[2019-06-23 04:37] LABS: INR 5.83 INR (0.92-1.08)
[2019-06-23 04:57] LABS: Albumin * 1.8 gm/dl (3.4-5.0); Anion Gap 21.3 mmol/L (6.8-13.8); BUN/Creatinine Ratio 24.8 (9.0-21.6); Bilirubin, Total 0.4 mg/dL (0.0-1.1); Ca. Corrected For Albumin 9.2 mg/dL (8.4-10.2); Calcium * 7.8 mg/dL (7.9-10.9); Carbon Dioxide 15.9 mmol/L (24-32.6); Potassium 4.2 mmol/L (3.4-4.6); Total Protein 5.5 gm/dL (6.2-8.2)
[2019-06-23] MEDS ORDERED: NORMAL SALINE 1,000 ML IV ONE ×3 (05:16→08:26)
[2019-06-23 05:17] LABS: Total Cells Counted 100
[2019-06-23 05:18] LABS: Band 22 % (0-2.0); Immature Granulocyte 2 (0-1); Lymphocyte 6 % (20-51); Monocyte 1 % (0-9); Neutrophil 69 % (42-75); Neutrophil # 11.6 K/mm3 (1.3-6.0); Toxic Granulation 1+
[2019-06-23 05:24] LABS: Troponin I 0.09 ng/mL (0.00-0.10)
[2019-06-23] MEDS ORDERED: PIPERACILLIN SODIUM/TAZOBACTAM 3.375 GM in DEXTROSE 5 % IN WATER 100 ML IV SCH ×4 (05:30)
[2019-06-23 05:49] LABS: Urine Bilirubin Negative (NEGATIVE); Urine Blood 50 /ul (NEGATIVE); Urine Ketone Negative (NEGATIVE); Urine Nitrite Negative (NEGATIVE); Urine Protein 30 mg/dL (NEGATIVE); Urine Urobilinogen Normal (NORMAL)
[2019-06-23 06:19] LABS: Urine Appearance Slightly Cloudy (CLEAR); Urine Color Yellow
[2019-06-23 06:20] LABS: Urine Bacteria 2+; Urine RBC None Seen /hpf (0-5)
[2019-06-23 07:02] LABS: Hematocrit 49.9 % (37.0-47.0); Hemoglobin 15.6 gm/dL (12.5-16.0); Mean Cell Volume 96.9 fl (78-100); Mean Corpuscular Hemoglobin 30.3 pg (27-31); Mean Corpuscular Hgb Conc 31.3 g/dl (32-36); Mean Platelet Volume 10.3 fl (8-12.5); Platelet Count 462 K/mm3 (150-450); Red Blood Count 5.15 M/mm3 (4.2-5.4); Red Cell Distribution Width 14.2 % (11.5-14.0); White Blood Count 24.1 K/mm3 (4.0-10.5)
[2019-06-23 07:11] LABS: Total Cells Counted 100
[2019-06-23 07:14] LABS: Albumin * 1.6 gm/dl (3.4-5.0); Anion Gap 18.8 mmol/L (6.8-13.8); BUN/Creatinine Ratio 26.1 (9.0-21.6); Bilirubin, Total 0.3 mg/dL (0.0-1.1); Ca. Corrected For Albumin 9.3 mg/dL (8.4-10.2); Calcium * 7.7 mg/dL (7.9-10.9); Carbon Dioxide 14.1 mmol/L (24-32.6); Potassium 3.9 mmol/L (3.4-4.6); Total Protein 5.5 gm/dL (6.2-8.2)
[2019-06-23 07:18] LABS: Band 5 % (0-2.0); Lymphocyte 5 % (20-51); Monocyte 8 % (0-9); Neutrophil 82 % (42-75); Neutrophil # 19.8 K/mm3 (1.3-6.0); Platelet Estimate Normal (NORMAL)
[2019-06-23 07:19] LABS: Toxic Granulation Trace
[2019-06-23] MEDS ORDERED: NOREPINEPHRINE BITARTRATE 4 MG in DEXTROSE 5 % IN WATER 500 ML IV PRN ×2 (08:30)
[2019-06-23] MEDS ORDERED: VANCOMYCIN HCL 50 MG/ML BTL PO SCH (09:15)
[2019-06-23] MEDS ORDERED: DIATRIZOATE MEGLUMINE, SODIUM 30 ML BTL PO ONE (09:26)
--- NOTE | 2019-06-23 09:35 | PN ---
Subjective - Date and Time Seen Date: 06/22/19 Time: 09:00 Subjective Narrative: no acute events overnight. Complaining of diffuse abdominal pain and nausea. Discussed scheduling pain medication and administering zofran prior to meals. This helped patient significantly. Objective - Review of Systems Generalized/Overall Review: Reports: Weakness. Denies: Chills, Fever, Fatigue EENTM: Reports: No Symptoms Reported Respiratory: Denies: Shortness of Breath Cardiac: Denies: Chest Pain, Edema Abdominal: Reports: Nausea, Abdominal Pain. Denies: Diarrhea Genitourinary Symptoms: Denies: Itching, Urgency, Frequency, Dysuria Musculoskeletal Complaints: Denies: Joint Pain, Back Pain, Joint Swelling Neurological: Reports: Weakness Skin: Reports: Dryness Endocrine: Reports: No Symptoms Reported - Vitals Vitals: Last Vital Signs Temp 36.6 C 06/23/19 02:39 Pulse 88 06/23/19 02:39 Resp 18 06/23/19 02:39 BP 113/77 06/23/19 02:39 Pulse Ox 97 06/23/19 02:39 - Abnormal Lab Findings Abnormal Lab Findings: Abnormal Lab Results 06/23/19 06/23/19 06/23/19 Range/Units 04:10 04:10 04:10 WBC 16.8 H D (4.0-10.5) K/mm3 Hct (37.0-47.0) % MCHC (32-36) g/dl RDW 14.2 H (11.5-14.0) % Plt Count (150-450) K/mm3 Neutrophils % (Manual) (42-75) % Band Neuts % (Manual) 22 H (0-2.0) % Lymphocytes % (Manual) 6 L (20-51) % Immature Granulocytes 2 H (0-1) Neutrophils # (Manual) 11.6 H (1.3-6.0) K/mm3 Lymphocytes # (Manual) 1.0 L (1.5-3.5) k/mm3 Monocytes # (Manual) (0.0-1.0) k/mm3 PT 53.9 H (9.1-10.7) Seconds INR (Anticoag Therapy) 5.83 H* (0.92-1.08) INR Carbon Dioxide 15.9 L (24-32.6) mmol/L Anion Gap 21.3 H (6.8-13.8) mmol/L BUN 40 H (3-23) mg/dL Creatinine 1.61 H (0.4-1.4) mg/dL Est GFR (Non-Af Amer) 33 L D (60-130) mL/min BUN/Creatinine Ratio 24.8 H (9.0-21.6) Random Glucose 432 H D (70-110) mg/dL Lactic Acid, Venous (0.4-2.0) mmol/L Calcium 7.8 L (7.9-10.9) mg/dL AST (0-48) U/L Total Protein 5.5 L (6.2-8.2) gm/dL Albumin 1.8 L (3.4-5.0) gm/dl Urine Protein (NEGATIVE) mg/dL Urine Glucose (UA) (NEGATIVE) mg/dL Urine Blood (NEGATIVE) /ul Prot Sulfosalicylic Acd (0) mg/dL Ur Leukocyte Esterase (NEGATIVE) /ul Urine WBC (0-5) /hpf Urine Bacteria (NONE) Urine Comment 06/23/19 06/23/19 06/23/19 Range/Units 04:49 05:45 06:45 WBC 24.1 H D (4.0-10.5) K/mm3 Hct 49.9 H (37.0-47.0) % MCHC 31.3 L (32-36) g/dl RDW 14.2 H (11.5-14.0) % Plt Count 462 H (150-450) K/mm3 Neutrophils % (Manual) 82 H (42-75) % Band Neuts % (Manual) 5 H (0-2.0) % Lymphocytes % (Manual) 5 L (20-51) % Immature Granulocytes (0-1) Neutrophils # (Manual) 19.8 H (1.3-6.0) K/mm3 Lymphocytes # (Manual) 1.2 L (1.5-3.5) k/mm3 Monocytes # (Manual) 1.9 H (0.0-1.0) k/mm3 PT (9.1-10.7) Seconds INR (Anticoag Therapy) (0.92-1.08) INR Carbon Dioxide (24-32.6) mmol/L Anion Gap (6.8-13.8) mmol/L BUN (3-23) mg/dL Creatinine (0.4-1.4) mg/dL Est GFR (Non-Af Amer) (60-130) mL/min BUN/Creatinine Ratio (9.0-21.6) Random Glucose (70-110) mg/dL Lactic Acid, Venous 6.0 H* (0.4-2.0) mmol/L Calcium (7.9-10.9) mg/dL AST (0-48) U/L Total Protein (6.2-8.2) gm/dL Albumin (3.4-5.0) gm/dl Urine Protein 30 H (NEGATIVE) mg/dL Urine Glucose (UA) 500 H (NEGATIVE) mg/dL Urine Blood 50 H (NEGATIVE) /ul Prot Sulfosalicylic Acd 2+ H (0) mg/dL Ur Leukocyte Esterase 25 H (NEGATIVE) /ul Urine WBC 5-10 H (0-5) /hpf Urine Bacteria 2+ H (NONE) Urine Comment Culture ordered L 06/23/19 06/23/19 Range/Units 06:45 06:45 WBC (4.0-10.5) K/mm3 Hct (37.0-47.0) % MCHC (32-36) g/dl RDW (11.5-14.0) % Plt Count (150-450) K/mm3 Neutrophils % (Manual) (42-75) % Band Neuts % (Manual) (0-2.0) % Lymphocytes % (Manual) (20-51) % Immature Granulocytes (0-1) Neutrophils # (Manual) (1.3-6.0) K/mm3 Lymphocytes # (Manual) (1.5-3.5) k/mm3 Monocytes # (Manual) (0.0-1.0) k/mm3 PT (9.1-10.7) Seconds INR (Anticoag Therapy) (0.92-1.08) INR Carbon Dioxide 14.1 L (24-32.6) mmol/L Anion Gap 18.8 H (6.8-13.8) mmol/L BUN 40 H (3-23) mg/dL Creatinine 1.53 H (0.4-1.4) mg/dL Est GFR (Non-Af Amer) 35 L (60-130) mL/min BUN/Creatinine Ratio 26.1 H (9.0-21.6) Random Glucose 371 H (70-110) mg/dL Lactic Acid, Venous 5.0 H* (0.4-2.0) mmol/L Calcium 7.7 L (7.9-10.9) mg/dL AST 53 H (0-48) U/L Total Protein 5.5 L (6.2-8.2) gm/dL Albumin 1.6 L (3.4-5.0) gm/dl Urine Protein (NEGATIVE) mg/dL Urine Glucose (UA) (NEGATIVE) mg/dL Urine Blood (NEGATIVE) /ul Prot Sulfosalicylic Acd (0) mg/dL Ur Leukocyte Esterase (NEGATIVE) /ul Urine WBC (0-5) /hpf Urine Bacteria (NONE) Urine Comment - Exam Constitutional: Present: Alert, Oriented x3, Cooperative, Well developed, No distress ENT Exam: Present: hearing grossly normal Neck: Present: full range of motion, supple Respiratory: Present: lungs clear, normal breath sounds, no respiratory distress Cardiovascular/Chest: Present: normal peripheral pulses, regular rate, rhythm, no chest tenderness, no edema, no gallop, no JVD, no murmur Abdomen: Present: Normal bowel sounds, soft, tender - ttp of lower abdome /Rectal: Present: Exam deferred Extremity: Present: non-tender, normal inspection, normal capillary refill, pedal edema Skin Exam: Present: normal color, warm/dry Neurologic: Present: alert, oriented x 3 Appearance: Present: appropriate appearance Eye contact: Present: cooperative, good eye contact Thoughts: Present: normal thought pattern Assessment/Plan Plan Narrative: Assessment/Plan 78 year old Female admitted for C.Diff Colitis, Weakness and Dehydration. C.Diff Colitis - Vancomycin 125 mg PO Q6H X Day #2 /10 Days - Added flagyl 500 mg IV Q8H x Day #1/10 days - KUB for abdominal pain - Scheduled Toradol and Tylenol for better pain control. - Scheduled zofran prior to meals for better PO intake Poor Oral Intake and Dehydration - Hydrate with NS - Will be gentle with hydration in order not to exacerbate CHF - Will repeat CMP - Zofran scheduled before meals for better po intake. Acute Renal Failure - Improving - repeat CMP in AM Weakness - Cont PT - recommendations PT outpatient Chronic Conditions - Continue home medications FEN: mIVFs with NS, Consistent Carbs with thickened diet due to dysphagia DVT ppx: Coumadin 4mg PO Daily (INR therapeutic) CODE STATUS: DNR/DNI Disposition: - Anticipate labs to improve with additional doses of IV flagyl - f/u on po intake and abdominal pain - Anticipate discharge to [facility] within 48 hours hours with PT and Vancomycin and Falgyl, followed by rafiximin - Refer for stool transplant at [facility] - Problems/Diagnosis (1) Clostridium difficile colitis Problem: Acute (2) Diarrhea Problem: Acute Qualifiers: Diarrhea type: infectious Qualified Code(s): A09 - Infectious gastroenteritis and colitis, unspecified (3) Weakness Problem: Acute (4) Acute renal failure Problem: Acute Qualifiers: Acute renal failure type: unspecified Qualified Code(s): N17.9 - Acute kidney failure, unspecified (5) PAD (peripheral artery disease) Problem: Chronic (6) Skin ulcer of third toe of left foot Problem: Chronic Qualifiers: Non-pressure ulcer stage: with fat layer exposed Qualified Code(s): L97.522 - Non-pressure chronic ulcer of other part of left foot with fat layer exposed (7) CHF (congestive heart failure) Problem: Chronic Qualifiers: Heart failure type: unspecified Heart failure chronicity: unspecified Qualified Code(s): I50.9 - Heart failure, unspecified (8) Diabetes Problem: Chronic Qualifiers: Diabetes mellitus type: type 2 Diabetes mellitus director long term care insulin use: with care home use Diabetes mellitus complication status: with circulatory complication Diabetes mellitus complication detail: with peripheral angiopathy without gangrene Qualified Code(s): E11.51 - Type 2 diabetes mellitus with diabetic peripheral angiopathy without gangrene; Z79.4 - [facility] (current) use of insulin
--- NOTE | 2019-06-23 09:59 | PN ---
Subjective - Date and Time Seen Date: 06/23/19 Time: 08:34 Subjective Narrative: She complains of right lower quadrant abdominal pain. Denies shortness of breath or chest pain. Objective - Review of Systems Generalized/Overall Review: Denies: Fever Respiratory: Denies: Shortness of Breath Cardiac: Denies: Chest Pain Abdominal: Reports: Abdominal Pain - Right lower quadrant. Denies: Diarrhea Misc: All systems neg except as marked - Vitals Vitals: Last Vital Signs Temp 36.6 C 06/23/19 02:39 Pulse 83 06/23/19 09:30 Resp 26 H 06/23/19 09:30 BP 78/42 L 06/23/19 09:30 Pulse Ox 91 L 06/23/19 09:36 - Abnormal Lab Findings Abnormal Lab Findings: Abnormal Lab Results 06/23/19 06/23/19 06/23/19 Range/Units 04:10 04:10 04:10 WBC 16.8 H D (4.0-10.5) K/mm3 Hct (37.0-47.0) % MCHC (32-36) g/dl RDW 14.2 H (11.5-14.0) % Plt Count (150-450) K/mm3 Neutrophils % (Manual) (42-75) % Band Neuts % (Manual) 22 H (0-2.0) % Lymphocytes % (Manual) 6 L (20-51) % Immature Granulocytes 2 H (0-1) Neutrophils # (Manual) 11.6 H (1.3-6.0) K/mm3 Lymphocytes # (Manual) 1.0 L (1.5-3.5) k/mm3 Monocytes # (Manual) (0.0-1.0) k/mm3 PT 53.9 H (9.1-10.7) Seconds INR (Anticoag Therapy) 5.83 H* (0.92-1.08) INR Carbon Dioxide 15.9 L (24-32.6) mmol/L Anion Gap 21.3 H (6.8-13.8) mmol/L BUN 40 H (3-23) mg/dL Creatinine 1.61 H (0.4-1.4) mg/dL Est GFR (Non-Af Amer) 33 L D (60-130) mL/min BUN/Creatinine Ratio 24.8 H (9.0-21.6) Random Glucose 432 H D (70-110) mg/dL Lactic Acid, Venous (0.4-2.0) mmol/L Calcium 7.8 L (7.9-10.9) mg/dL AST (0-48) U/L Total Protein 5.5 L (6.2-8.2) gm/dL Albumin 1.8 L (3.4-5.0) gm/dl Urine Protein (NEGATIVE) mg/dL Urine Glucose (UA) (NEGATIVE) mg/dL Urine Blood (NEGATIVE) /ul Prot Sulfosalicylic Acd (0) mg/dL Ur Leukocyte Esterase (NEGATIVE) /ul Urine WBC (0-5) /hpf Urine Bacteria (NONE) Urine Comment 06/23/19 06/23/19 06/23/19 Range/Units 04:49 05:45 06:45 WBC 24.1 H D (4.0-10.5) K/mm3 Hct 49.9 H (37.0-47.0) % MCHC 31.3 L (32-36) g/dl RDW 14.2 H (11.5-14.0) % Plt Count 462 H (150-450) K/mm3 Neutrophils % (Manual) 82 H (42-75) % Band Neuts % (Manual) 5 H (0-2.0) % Lymphocytes % (Manual) 5 L (20-51) % Immature Granulocytes (0-1) Neutrophils # (Manual) 19.8 H (1.3-6.0) K/mm3 Lymphocytes # (Manual) 1.2 L (1.5-3.5) k/mm3 Monocytes # (Manual) 1.9 H (0.0-1.0) k/mm3 PT (9.1-10.7) Seconds INR (Anticoag Therapy) (0.92-1.08) INR Carbon Dioxide (24-32.6) mmol/L Anion Gap (6.8-13.8) mmol/L BUN (3-23) mg/dL Creatinine (0.4-1.4) mg/dL Est GFR (Non-Af Amer) (60-130) mL/min BUN/Creatinine Ratio (9.0-21.6) Random Glucose (70-110) mg/dL Lactic Acid, Venous 6.0 H* (0.4-2.0) mmol/L Calcium (7.9-10.9) mg/dL AST (0-48) U/L Total Protein (6.2-8.2) gm/dL Albumin (3.4-5.0) gm/dl Urine Protein 30 H (NEGATIVE) mg/dL Urine Glucose (UA) 500 H (NEGATIVE) mg/dL Urine Blood 50 H (NEGATIVE) /ul Prot Sulfosalicylic Acd 2+ H (0) mg/dL Ur Leukocyte Esterase 25 H (NEGATIVE) /ul Urine WBC 5-10 H (0-5) /hpf Urine Bacteria 2+ H (NONE) Urine Comment Culture ordered L 06/23/19 06/23/19 Range/Units 06:45 06:45 WBC (4.0-10.5) K/mm3 Hct (37.0-47.0) % MCHC (32-36) g/dl RDW (11.5-14.0) % Plt Count (150-450) K/mm3 Neutrophils % (Manual) (42-75) % Band Neuts % (Manual) (0-2.0) % Lymphocytes % (Manual) (20-51) % Immature Granulocytes (0-1) Neutrophils # (Manual) (1.3-6.0) K/mm3 Lymphocytes # (Manual) (1.5-3.5) k/mm3 Monocytes # (Manual) (0.0-1.0) k/mm3 PT (9.1-10.7) Seconds INR (Anticoag Therapy) (0.92-1.08) INR Carbon Dioxide 14.1 L (24-32.6) mmol/L Anion Gap 18.8 H (6.8-13.8) mmol/L BUN 40 H (3-23) mg/dL Creatinine 1.53 H (0.4-1.4) mg/dL Est GFR (Non-Af Amer) 35 L (60-130) mL/min BUN/Creatinine Ratio 26.1 H (9.0-21.6) Random Glucose 371 H (70-110) mg/dL Lactic Acid, Venous 5.0 H* (0.4-2.0) mmol/L Calcium 7.7 L (7.9-10.9) mg/dL AST 53 H (0-48) U/L Total Protein 5.5 L (6.2-8.2) gm/dL Albumin 1.6 L (3.4-5.0) gm/dl Urine Protein (NEGATIVE) mg/dL Urine Glucose (UA) (NEGATIVE) mg/dL Urine Blood (NEGATIVE) /ul Prot Sulfosalicylic Acd (0) mg/dL Ur Leukocyte Esterase (NEGATIVE) /ul Urine WBC (0-5) /hpf Urine Bacteria (NONE) Urine Comment - Exam Constitutional: Present: Oriented x3, Cooperative, Well developed, Well nourished, Elderly ENT Exam: Present: hearing grossly normal Neck: Absent: lymphadenopathy (R), lymphadenopathy (L) Respiratory: Present: lungs clear, no respiratory distress, no accessory muscle use, No wheezing. Absent: crackles, rhonchi Cardiovascular/Chest: Present: normal peripheral pulses, regular rate, rhythm, no edema, no murmur Abdomen: Present: Normal bowel sounds, soft, tender - Especially in the right lower quadrant. Absent: rebound tenderness Extremity: Present: no pedal edema Skin Exam: Present: normal color, warm/dry Neurologic: Present: alert Appearance: Present: appropriate insight Eye contact: Present: cooperative Thoughts: Present: normal mood /affect Assessment/Plan Plan Narrative: 78-year-old female with a past medical history of recurrent C. difficile infection, (she has had 2 prior episodes that were treated with vancomycin and Flagyl), CAD, CHF, arthritis, depression, diabetes mellitus type 2, DJD, GERD, hypertension, hyperlipidemia, pulmonary hypertension, peripheral artery disease status post stent placement, restless leg syndrome presents from the [facility] with complaints of diarrhea and weakness for 2 weeks, associated with intermittent vomiting and abdominal pain. In the emergency department she was found to be positive for C. difficile, mildly hypokalemic and have acute kidney injury worsening renal function. She was admitted for treatment of C. difficile infection. She was started on oral vancomycin. Her symptoms slightly worsened and she was she developed worsening leukocytosis and IV Flagyl was then added. This morning she developed hypotension and had a vagal episode while on the commode. Her WBC count also jumped up to 24,000 from 16,000 yesterday. She had a positive UA on admission and was started on Zosyn this morning that had not been treated. Zosyn was started this morning for Klebsiella pneumonia that was growing in the urine. She was started on IV fluids per the sepsis protocol. After 3 boluses of 5 normal saline she remained hypotensive with systolic blood pressure in the 70s. She was then started on a Levophed drip with improvement of her blood pressure. The patient's blood pressure continued to drop despite being on norepinephrine. She developed skin mottling. Her troponins came back positive at 0.1, she continued to have elevated lactic acid of 4.6 and elevated INR of 5. Urine not able to obtain O2 saturations due to the finger pulse ox not picking up her levels. We tried multiple times to obtain an ABG but were unable to successfully get one likely because of her hypotension. The patient's prognosis is very poor. I informed her the family regarding her quick deterioration and that aggressive management would not improve her quality of life especially with her comorbidities including congestive heart failure. The family was at bedside and the son (POA) and daughter decided that they did not want aggressive management and to transition her to comfort measures only. The patient is a DNR/DNI at this time. - Problems/Diagnosis (1) Comfort measures only status Problem: Acute (2) Acute renal failure Problem: Acute Qualifiers: Acute renal failure type: unspecified Qualified Code(s): N17.9 - Acute kidney failure, unspecified (3) Sepsis associated hypotension Problem: Acute (4) UTI due to Klebsiella species Problem: Acute (5) Hypotension Problem: Acute (6) History of CVA with residual deficit Problem: Acute (7) Clostridium difficile colitis Problem: Acute (8) Weakness Problem: Acute (9) Abdominal pain Problem: Acute Qualifiers: Abdominal location: generalized Qualified Code(s): R10.84 - Generalized abdominal pain (10) CAD, multiple vessel Problem: Chronic (11) CHF (congestive heart failure) Problem: Chronic Qualifiers: Heart failure type: unspecified Heart failure chronicity: unspecified Qualified Code(s): I50.9 - Heart failure, unspecified (12) Diabetes Problem: Chronic Qualifiers: Diabetes mellitus type: type 2 Diabetes mellitus tank terminal gauger insulin use: wi tank terminal gauger use Diabetes mellitus complication status: with circulatory complication Diabetes mellitus complication detail: with peripheral angiopathy without gangrene Qualified Code(s): E11.51 - Type 2 diabetes mellitus with diabetic peripheral angiopathy without gangrene; Z79.4 - extermination supervisor (current) use of insulin (13) PAD (peripheral artery disease) Problem: Chronic (14) Mottled skin Problem: Acute
[2019-06-23] MEDS ORDERED: metroNIDAZOLE/SODIUM CHLORIDE 500 MG/100 ML BAG IV SCH (10:00)
[2019-06-23] MEDS: METOPROLOL TARTRATE 25 MG TABLET PO SCH (10:12)
[2019-06-23] MEDS: VENLAFAXINE HCL 75 MG TABLET PO SCH (10:13)
[2019-06-23] MEDS: FUROSEMIDE 40 MG TABLET PO SCH (10:13)
[2019-06-23] MEDS: PROCHLORPERAZINE EDISYLATE 5 MG/ML VIAL IV PRN (10:19)
[2019-06-23] MEDS: ACETAMINOPHEN 500 MG TABLET PO SCH (10:33)
[2019-06-23 10:49] LABS: Prothrombin Time (Patient) 66.8 Seconds (9.1-10.7)
[2019-06-23] MEDS ORDERED: NORMAL SALINE 1,000 ML IV PRN (11:08)
[2019-06-23 11:09] LABS: INR 7.28 INR (0.92-1.08)
[2019-06-23] MEDS ORDERED: MORPHINE SULFATE 2 MG/ML DISP.SYRIN IV PRN ×2 (11:30→11:39)
[2019-06-23] MEDS ORDERED: POLYVINYL ALCOHOL 150 DROP BTL EACHEYE PRN (11:39)
[2019-06-23] MEDS ORDERED: LORazepam 2 MG/ML DISP.SYRIN IV PRN (11:39)
[2019-06-23] MEDS ORDERED: MORPHINE SULFATE 10 MG/0.5 ML SYRINGE PO PRN (11:39)
[2019-06-23 13:19] VITALS: BP 64/0
--- NOTE | 2019-06-23 16:42 | DS ---
Discharge Summary - Provider Primary Care Provider: Leanne Ortiz - Date and Time Date of : 06/23/19 Time of : 12:03 - Diagnosis/Cause of (1) Comfort measures only status Problems: Acute (2) Sepsis associated hypotension Problems: Acute (3) Acute renal failure Problems: Acute (4) UTI due to Klebsiella species Problems: Acute (5) Hypotension Problems: Acute (6) History of CVA with residual deficit Problems: Acute (7) Clostridium difficile colitis Problems: Acute (8) Weakness Problems: Acute (9) Abdominal pain Problems: Acute (10) CAD, multiple vessel Problems: Chronic (11) CHF (congestive heart failure) Problems: Chronic (12) Diabetes Problems: Chronic (13) PAD (peripheral artery disease) Problems: Chronic (14) Mottled skin Problems: Acute - Summary Details (narrative): 78-year-old female admitted with recurrent C. difficile colitis and acute kidney injury. Started on vancomycin and Flagyl. Found to have UTI started on Zosyn. Developed hypotension with sepsis that was not responsive to aggressive IV fluid hydration. She was started on norepinephrine with persistent hypotension. Her leukocytosis trended up to 24,000, troponin was elevated at 0.1 and her INR was elevated at 5. She started to develop mottling of her skin, we were unable to obtain O2 sats. Multiple attempts were made to get an ABG with no success. Due to the patient's poor prognosis the family decided to make the patient comfort measures only. The patient at 12:03 PM on June 23, 2019. Procedures Performed: none - Additional Data Confirmation of as documented by pronouncing clinician: no pulse, no respirations, no heart sounds, pupils fixed and dilated Family: at bedside
== END 2019-06-23 14:00 | disposition expired | DRG 871 ==
LOC: MS 14:36 → ER 14:36 → MS 18:59
PROVIDERS: ADMIT Family Medicine; ATTEND Internal Medicine
DX: E86.0 Dehydration; A41.9 Sepsis, unspecified organism; E87.6 Hypokalemia; I50.9 Heart failure, unspecified; R65.21 Severe sepsis with septic shock; N18.9 Chronic kidney disease, unspecified; N17.9 Acute kidney failure, unspecified; I69.851 Hemiplegia and hemiparesis following other cerebrovascular disease affecting right dominant side; L97.522 Non-pressure chronic ulcer of other part of left foot with fat layer exposed; I69.891 Dysphagia following other cerebrovascular disease; I27.20 Pulmonary hypertension, unspecified; G93.41 Metabolic encephalopathy; A04.71 Enterocolitis due to Clostridium difficile, recurrent; E11.621 Type 2 diabetes mellitus with foot ulcer; J96.01 Acute respiratory failure with hypoxia; E11.51 Type 2 diabetes mellitus with diabetic peripheral angiopathy without gangrene; Z79.4 Long term (current) use of insulin; I13.0 Hypertensive heart and chronic kidney disease with heart failure and stage 1 through stage 4 chronic kidney disease, or unspecified chronic kidney disease; N39.0 Urinary tract infection, site not specified; B96.1 Klebsiella pneumoniae [K. pneumoniae] as the cause of diseases classified elsewhere; E11.22 Type 2 diabetes mellitus with diabetic chronic kidney disease; I73.9 Peripheral vascular disease, unspecified
CPT/HCPCS: 36415; 71010; 71045; 74000; 74018; 74019; 74020; 80053; 81001; 82550; 83605; 84484; 85025; 85610; 87040; 87077; 87081; 87086; 87186; 87493; 93005; 96361; 96365; 96366; 96367; 96375; 96376; 97162; 99285; G0378; J2405